=== PATIENT | female | born 1965 | race Caucasian/White ===

== ENCOUNTER 2020-07-02 12:27 | Emergency (ER) | payer MEDICAID, SELFPAY ==
[2020-07-02 12:33] VITALS: BP 122/68; PULSE 88; RESP 16; TEMP 36.5; O2SAT 96
--- NOTE | 2020-07-02 12:45 | DI.RAD_ITS ---
EXAM: XR FOOT RT COMPLETE CLINICAL HISTORY: pain, no truama. TECHNIQUE: 2D digital imaging was performed. COMPARISON: No exams were available for comparison FINDINGS: BONES: No acute fracture is present. No bony destructive lesion is seen.Heel spurs. Normal bone mine ralization. JOINTS: No dislocation present. Mild degenerative changes 1st MTP joint. Small ossicles adjacent to the navicular and cuboid. SOFT TISSUE: Normal. IMPRESSION: Mild degenerative changes and heel spurs. No acute abnormality. DATA REPOSITORY: RADIATION DOSE DELIVERED:
--- NOTE | 2020-07-02 12:47 | ED.GENADUL_ITS ---
Discharge Plan Disposition Patient Disposition: HOME Condition: Stable Discharge Details Clinical Impression: Bone spur of foot Primary Care Provider: Tarah Adams ED Provider: Gerardo Miner Home Meds and New Rx's Prescriptions: Continued amlodipine 2.5 mg tablet 2.5 mg PO DAILY Qty: 90 RF: 0 pravastatin 40 mg tablet 40 mg PO DAILY Qty: 90 RF: 0 bupropion HCl 150 mg tablet sustained-release 12 hr 150 mg PO BID Qty: 60 RF: 2 pantoprazole 40 mg tablet,delayed release (DR/EC) 40 mg PO DAILY Qty: 90 RF: 3 aspirin [Aspir-81] 81 MG tablet,delayed release (DR/EC) 81 mg PO DAILY Qty: 30 RF: 0 nitroglycerin [Nitrostat] 0.4 MG tablet, sublingual 0.4 mg Sublingual DIRECTED PRNQty: 25 RF: 0 Discharge Instructions Instructions: Heel Spur (ED) Referrals: Mihai Rose MD [ [facility] STAFF PHYSICIAN] - Medical Decision Making 55-year-old female presents with right plantar pain, atraumatic in nature, present for approximately 1 week. Point tenderness over the anterior calcaneus, most consistent with a bone spur. No evidence of warmth, erythema, cellulitis, gout, etc. The discomfort does not range into the arch of the foot that would be more consistent like a plantar fasciitis. Will obtain x-ray X-ray of right foot shows a bone spur of the calcaneus. Discussed findings with patient. Discussed treatment options. She has crutches at home. We discussed gentle stretching, rolling out a tennis ball, urut-wsm-[id number] anti-inflammatories, cool and/or warm compresses, advancing activity as tolerated. She was encouraged to reach out to orthopedics in the next 5-7 days if she is not receiving moderate relief with conservative therapy. Encouraged to return to the ER for new or evolving symptoms. Patient comfortable this plan and has no additional questions or concerns. Medical Records Medical records reviewed: Yes I reviewed the patient's medical records. HPI General Mode of arrival: ambulatory . Date/Time Provider Initiated Documentation: 07/02/20 12:38 . Limitations to Documentation: no limitations . Information obtained by: patient . HPI Narrative: 55-year-old female with history of hypertension, GERD, hyperlipidemia, current smoker, presents with right heel discomfort that has been present for the past week or so. Atraumatic in nature. Denies any fever, redness, swelling, numbness, tingling, weakness. Has tried [id number]-[id number] medications with minimal relief. Denies any other joint pain. Related Data Home Medications Medication Instructions Recorded Confirmed aspirin [Aspir-81] 81 mg PO DAILY #30 tablet. 01/04/13 07/02/20 nitroglycerin [Nitrostat] 0.4 mg SUBLINGUAL DIRECTED PRN 07/27/17 07/02/20 #25 tab.subl amlodipine 2.5 mg tablet 2.5 mg PO DAILY #90 tab 10/19/19 07/02/20 pravastatin 40 mg tablet 40 mg PO DAILY #90 tab-cap 10/19/19 07/02/20 bupropion HCl 150 mg tablet,12 hr 150 mg PO BID #60 tab 12/11/19 07/02/20 sustained-release pantoprazole 40 mg tablet,delayed 40 mg PO DAILY #90 tab-cap 05/13/20 07/02/20 release Previous Rx's Medication Instructions Recorded aspirin [Aspir-81] 81 mg PO DAILY #30 tablet. 01/04/13 nitroglycerin [Nitrostat] 0.4 mg SUBLINGUAL DIRECTED PRN 07/27/17 #25 tab.subl amlodipine 2.5 mg tablet 2.5 mg PO DAILY #90 tab 10/19/19 pravastatin 40 mg tablet 40 mg PO DAILY #90 tab-cap 10/19/19 bupropion HCl 150 mg tablet,12 hr 150 mg PO BID #60 tab 12/11/19 sustained-release pantoprazole 40 mg tablet,delayed 40 mg PO DAILY #90 tab-cap 05/13/20 release Allergies Allergy/AdvReac Type Severity Reaction Status Date / Time No Known Allergies Allergy Unverified 07/02/20 12:35 General Stated Complaint: Orthopedic JUNO: 4 Review of Systems Constitutional Constitutional: Denies fever(s) and Denies weakness Cardiovascular Cardiovascular: Denies chest pain and Denies dyspnea Respiratory Respiratory: Denies cough and Denies dyspnea Musculoskeletal Musculoskeletal: Denies arthralgias, Denies numbness and Denies tingling Integumentary/Breasts Skin/Breast: Denies rash Neurologic Neurologic: Denies numbness, Denies tingling and Denies weakness [facility] Medical History History of surgery S/P Lap assisted vaginal hysterectomy including oophorectomy. S/P section x two. S/P cardiac catheterization. Family History Mother Stroke Father , CAR ACCIDENT No problems noted. Sister , SHOT BY BOYFRIEND No problems noted. Sister Neoplasm Sister Neoplasm Social History Smoking/Tobacco Use Status: Current every day Smoking risk assessment performed?: Yes Alcohol Intake: current Alcohol Intake frequency: a few times a month Drug use: Current Sobriety Substance use type: does not use Do you feel safe at home: Yes Do you feel safe in your relationship?: Yes Exam Const General: cooperative, healthy appearing, comfortable and no acute distress Orientation: alert and awake HENWI Head: normal to inspection, normocephalic and atraumatic Eyes General: appearance normal, both eyes and all related structures Conjunctivae: conjunctivae normal Sclera: sclerae normal Neck Neck: normal visual inspection, trachea midline and supple Resp Effort & Inspection: normal respiratory effort and able to speak in complete sentences Cardio Rate: regular rate Rhythm: regular rhythm Skin General skin exam: no rashes or lesions noted Neuro General: patient alert, patient awake, moves all extremities and no focal motor deficits Cognition: normal cognition Speech: speech normal Gait: antalgic Motor: muscle tone normal throughout Sensory Exam: no sensory deficits noted Extrem General: normal to inspection, full ROM and capillary refill normal Right lower extremity: normal to inspection, full ROM, normal capillary refill and foot Details: normal capillary refill, tenderness (Point tenderness over anterior calcaneus, plantar aspect), toes with normal ROM, no edema and vascular exam Details: dorsalis pedis pulse present and normal capillary refill; no unusual warmth and no ecchymosis Left lower extremity: normal to inspection, full ROM and normal capillary refill Psych Appearance: grossly normal Mental Status: mental status grossly normal Course Vital Signs Vital signs: Vital Signs Temperature 36.5 C 07/02/20 12:33 Pulse 88 07/02/20 12:33 Respiratory Rate 16 07/02/20 12:33 Blood Pressure 122/68 07/02/20 12:33 Pulse Oximetry 96 07/02/20 12:33 Temperature 36.5 C 07/02/20 12:33 Temperature Source Skin 07/02/20 12:33 Pulse 88 07/02/20 12:33 Respiratory Rate 16 07/02/20 12:33 Respiratory Effort Non-Labored 07/02/20 12:35 Blood Pressure 122/68 07/02/20 12:33 Blood Pressure Position Sitting 07/02/20 12:33 Pulse Oximetry 96 07/02/20 12:33 Oxygen Delivery Method Room Air 07/02/20 12:33 Oxygen Flow Rate 0 07/02/20 12:33 Pain Level 9 07/02/20 12:35
--- NOTE | 2020-07-02 13:15 | DI.VRAD_ITS ---
PROCEDURE INFORMATION: Exam: XR Right Foot Complete Exam date and time: 07/02/2020 12:59 PM Age: 55 years old Clinical indication: Pain; Foot and heel; Right TECHNIQUE: Imaging protocol: XR Right foot. Views: 3 or more views. COMPARISON: No relevant prior studies available. FINDINGS: Bones/joints: See Soft tissues finding. Soft tissues: There is chronic spurring on the calcaneus at the insertions of the plantar aponeurosis and Achilles tendon. There is bunion on the 1st metatarsal bone with mild degenerative narrowing and sclerosis in the 1st metatarsophalangeal joint. No fracture, dislocation or other acute bone or joint abnormalities are seen. IMPRESSION: 1. Chronic spurring on the calcaneus. 2. 1st metatarsal bunion with mild DJD in the 1st metatarsophalangeal joint. Dictated and Authenticated by: Sly Alanis MD. Ordering:ZULEIMA Carrillo MD
== END 2020-07-02 13:27 | disposition home or self-care (01) ==
PROVIDERS: Emergency Provider Physician Assistant
DX: M77.31 Calcaneal spur, right foot (principal); I10 Essential (primary) hypertension
CPT/HCPCS: 99283; 73630

== ENCOUNTER 2020-11-14 04:12 | Outpatient (CLI) | payer MEDICAID, SELFPAY ==
[2020-11-15 16:15] LABS: COVID-19 RT-PCR UVMMC Result Negative (Negative)
== END 2020-11-14 04:13 | disposition home or self-care (01) ==
LOC: LBO 04:12
DX: Z20.822 Contact with and (suspected) exposure to COVID-19 (principal)
CPT/HCPCS: U0003

== ENCOUNTER 2021-04-17 09:20 | Emergency (ER) | payer MEDICAID, SELFPAY ==
[2021-04-17 09:25] VITALS: BP 129/78; PULSE 67; TEMP 36.3; O2SAT 98
--- NOTE | 2021-04-17 10:03 | DI.RAD_ITS ---
Exam(s) XR FINGER LT INDEX EXAM: XR FINGER LT INDEX CLINICAL HISTORY: infection, ? FB. TECHNIQUE: 2D digital imaging was performed. COMPARISON: None. FINDINGS: BONES: No acute fracture is present. No bony destructive lesion is seen. JOINTS: No dislocation present. Degenerative changes the distal interphalangeal joint. SOFT TISSUE: Swelling. No foreign body or abnormal gas collection. IMPRESSION: Soft tissue swelling. No evidence of fracture or foreign body.. DATA REPOSITORY: RADIATION DOSE DELIVERED:
--- NOTE | 2021-04-17 10:12 | DI.VRAD_ITS ---
PROCEDURE INFORMATION: Exam: XR Left Finger(s) Exam date and time: 04/17/2021 9:45 AM Age: 55 years old Clinical indication: Finger(s); Left; Patient HX: Cut finger 1 week ago -. Pain/swellimg - distal phalange index finger TECHNIQUE: Imaging protocol: XR Left fingers. Views: Minimum 2 views. COMPARISON: No relevant prior studies available. FINDINGS: Bones/joints: Diffuse soft tissue swelling of the index finger specially the volar aspect. Osteoarthritis of the DIP joint. No evidence of acute fracture. Soft tissues: See Bones/joints finding. IMPRESSION: No evidence of acute fracture. Soft tissue swelling. Dictated and Authenticated by: Carolyn Noel MD. Ordering:ZULEIMA Carrillo MD
[2021-04-17] MEDS: Bupivacaine 0.5% Pres-Free 30 ML VIAL (10:27)
--- NOTE | 2021-04-17 10:34 | ED.GENADUL_ITS ---
Discharge Plan Disposition Patient Disposition: HOME Condition: Stable Discharge Details Clinical Impression: Finger infection Primary Care Provider: Tarah Adams ED Provider: Gerardo Miner Home Meds and New Rx's Prescriptions: New sulfamethoxazole-trimethoprim [Bactrim DS] 800-160 mg tablet 1 tab PO BID Qty: 20 RF: 0 Continued pantoprazole 40 mg tablet,delayed release (DR/EC) 40 mg PO DAILY Qty: 90 RF: 3 aspirin [Aspir-81] 81 MG tablet,delayed release (DR/EC) 81 mg PO DAILY Qty: 30 RF: 0 Discharge Instructions Instructions: Abscess (ED), Cellulitis (ED) Additional Instructions: Bactrim as directed. Rest, elevate, warm soaks and/or compresses every 2 hours for 20 minutes. [id number]-azp-[id number] Tylenol and/or Motrin as directed for discomfort. Wear splint as needed, advance activity as tolerated. Please watch for new or worsening symptoms and return to the ER for any concerns. Otherwise I recommend contacting your primary care provider tomorrow to discuss your ER visit and potential need for outpatient reevaluation Medical Decision Making 55-year-old female, xprli-cmia-zzygpiia, presents status post laceration 1 week ago, now infected. Tetanus status not up-to-date. Will update tetanus, obtain x-ray to rule out foreign body, and perform an I&D Tetanus updated X-ray unremarkable I&D performed, finger was properly cleaned, dressed, splinted. First dose of p.o. Bactrim given. Standard discharge and return precautions given. This documentation was generated using TRUE [employer] dictation system, please disregard any oddities of phrase or misspellings. Medical Records Medical records reviewed: Yes I reviewed the patient's medical records. Imaging Data Radiologic Study: Attestation: I personally reviewed and interpreted this imaging study as follows: Imaging: X-Ray Radiologist's impression: PROCEDURE INFORMATION: Exam: XR Left Finger(s) Exam date and time: 04/17/2021 9:45 AM Age: 55 years old Clinical indication: Finger(s); Left; Patient HX: Cut finger 1 week ago -. Pain/swellimg - distal phalange index finger TECHNIQUE: Imaging protocol: XR Left fingers. Views: Minimum 2 views. COMPARISON: No relevant prior studies available. FINDINGS: Bones/joints: Diffuse soft tissue swelling of the index finger specially the volar aspect. Osteoarthritis of the DIP joint. No evidence of acute fracture. Soft tissues: See Bones/joints finding. IMPRESSION: No evidence of acute fracture. Soft tissue swelling. HPI General Mode of arrival: ambulatory . Date/Time Provider Initiated Documentation: 04/17/21 09:44 . Limitations to Documentation: no limitations . Information obtained by: patient . HPI Narrative: This is a 55-year-old female, past medical history of GERD, hypertension, [id number], presenting to the ER today for evaluation of the potential left index finger infection. Patient states that 1 week ago at work she cut her finger superficially on metal strapping, did not think much of it. Now the area is painful, red, swollen. Reports the pain is moderate, worse with movement or palpation. She denies any numbness, tingling, weakness, tetanus status is not up to date. Patient states that she has stuck a needle in it and tried squeezing without any drainage. Denies fever or rash elsewhere on her body. Related Data Home Medications Medication Instructions Recorded Confirmed aspirin [Aspir-81] 81 mg PO DAILY #30 tablet. 01/04/13 04/17/21 pantoprazole 40 mg tablet,delayed 40 mg PO DAILY #90 tab-cap 05/13/20 04/17/21 release sulfamethoxazole-trimethoprim 1 tab PO BID #20 tab 04/17/21 [Bactrim DS] Previous Rx's Medication Instructions Recorded aspirin [Aspir-81] 81 mg PO DAILY #30 tablet. 01/04/13 pantoprazole 40 mg tablet,delayed 40 mg PO DAILY #90 tab-cap 05/13/20 release sulfamethoxazole-trimethoprim 1 tab PO BID #20 tab 04/17/21 [Bactrim DS] Allergies Allergy/AdvReac Type Severity Reaction Status Date / Time No Known Allergies Allergy Verified 04/17/21 09:29 General Stated Complaint: Cellulitis JUNO: 5 Review of Systems Constitutional Constitutional: Denies fever(s) Musculoskeletal Musculoskeletal: Denies arthralgias, Denies numbness, Reports stiffness and Denies tingling Integumentary/Breasts Skin/Breast: Reports erythema Neurologic Neurologic: Denies numbness and Denies tingling [facility] Medical History History of surgery S/P Lap assisted vaginal hysterectomy including oophorectomy. S/P section x two. S/P cardiac catheterization. Plantar fasciitis, right Family History Mother Stroke Father , CAR ACCIDENT No problems noted. Sister , SHOT BY BOYFRIEND No problems noted. Sister Neoplasm Sister Neoplasm Social History Smoking/Tobacco Use Status: Current every day Tobacco Type: cigarettes Smoking risk assessment performed?: Yes Alcohol Intake: current Alcohol Intake frequency: a few times a month Drug use: Current Sobriety Substance use type: does not use Do you feel safe at home: Yes Do you feel safe in your relationship?: Yes Exam Const General: cooperative, healthy appearing, comfortable and no acute distress Orientation: alert and awake HENMT Head: normal to inspection, normocephalic and atraumatic Eyes Conjunctivae: conjunctivae normal Neck Neck: normal visual inspection, trachea midline and supple Resp Effort & Inspection: normal respiratory effort and able to speak in complete sentences Cardio Rate: regular rate Rhythm: regular rhythm Skin General skin exam: erythema Neuro General: patient alert, patient awake, moves all extremities and no focal motor deficits Cognition: normal cognition Speech: speech normal Sensory Exam: no sensory deficits noted Extrem General: capillary refill normal Other: Left index finger lateral aspect between the PIP and DIP joint there is mild swelling, erythema, warmth, tenderness to palpation. Minimal induration but no obvious fluctuance or pointing abscess. Full range of motion of the MCP and PIP joint. Full extension of the DIP joint, limited flexion of the DIP joint secondary to discomfort. Normal capillary refill and radial pulse. Neuro, vascular, tendon intact. Psych Appearance: grossly normal Mental Status: mental status grossly normal Course Vital Signs Vital signs: Vital Signs Temperature 36.3 C L 04/17/21 09:25 Pulse 67 04/17/21 09:25 Blood Pressure 129/78 04/17/21 09:25 Pulse Oximetry 98 04/17/21 09:25 Temperature 36.3 C L 04/17/21 09:25 Temperature Source Temporal Artery Scan 04/17/21 09:25 Pulse 67 04/17/21 09:25 Respiratory Effort Non-Labored 04/17/21 09:27 Blood Pressure 129/78 04/17/21 09:25 Blood Pressure Position Sitting 04/17/21 09:25 Pulse Oximetry 98 04/17/21 09:25 Oxygen Delivery Method Room Air 04/17/21 09:25 Oxygen Flow Rate 0 04/17/21 09:25 Pain Level 5 04/17/21 09:25 Procedures Abscess I/D Site: Hand Side (if applicable): Left Local Anesthetic: Lidocaine 1%, Bupivicaine 0.5% and Other Anesthetic (Mvbq-xuq-weag mixture) Amount of anesthesia used (mL): 4 Technique: Incised with #11 Blade Amount of fluid expressed (mL): 0.5 Irrigation: No Packing used?: None Complications: Other (No complications)
[2021-04-17] MEDS: Sulfameth/Trimeth DS TAB 1 TAB PO (10:36)
== END 2021-04-17 10:59 | disposition home or self-care (01) ==
PROVIDERS: Emergency Provider Physician Assistant
DX: S61.211A Laceration without foreign body of left index finger without damage to nail, initial encounter (principal); L08.89 Other specified local infections of the skin and subcutaneous tissue; W26.8XXA Contact with other sharp object(s), not elsewhere classified, initial encounter; Y99.0 Civilian activity done for income or pay
CPT/HCPCS: 10060; 90471; 99281; 73140

== ENCOUNTER 2022-03-01 01:08 | Outpatient (CLI) | payer MEDICAID, SELFPAY ==
--- OUTSIDE RECORDS SUMMARY | 2022-03-01 01:10 | XMS_ITS | Encounter Summary ---
:1965 Demographics Home Phone Preferred Language Unknown Marital Status Unknown Taoism Affiliation Unknown Race Unknown Ethnic Group Unknown Author Organization [facility] Address [address] [place] [address] Care Team Providers Name Role Phone Unavailable Primary Care Provider Unavailable Encounter Details Date Type Department Care Team Description 11/14/2020 Lab Requisition [facility] Outr Resulting Lab, Pathology & Laboratory Provider [facility] [address] [place] [address] Social History Tobacco Use Types Packs/Day Years Used Date Never Assessed Sex Assigned at Date Recorded Not on file documented as of this encounter Plan of Treatment Not on filedocumented as of this encounter Procedures Procedure Name Priority Date/Time Associated Diagnosis Comme nts COVID-19 TEST [facility] Today 11/14/2020 9:04 EDT LAB PCR COVID-19 TESTING Routine 11/14/2020 9:04 EDT Resu lts for this procedure are i n the results section. documented in this encounter Results COVID-19 TEST [facility] LAB PCR (11/14/2020 9:04 EDT) Specimen Swab - Entire nasopharynx (body structur e) Performing Organization Address City/State/ZIP Code Phon e Number [facility] [address] [place] [address] SERVICES COVID-19 TESTING (11/14/2020 9:04 EDT) COVID-19 rt-PCR Negative Negative [facility] Result Comment: C[facility] This test has not been FDA c leared or approved. This test has been authorized by FDA under an EUA for use by authorized laboratories. This test has been authorized only for detection of nucleic acid fro SERVICES m 2019-nCoV, not for any oth er viruses or pathogens. This test is only authorized for the duration of the declaration that circumstances exist justifying the authorization of emergency use of in vitro d iagnostic tests for detectio n and/or diagnosis of 2019-nCoV under section 564(b)(1) of Act, 21 U.S.C ?? 360bbb-3(b) (1), unless the authorization is terminated or revoked sooner. Negative results do not prec lude 2019-nCoV infection and should not be used as the sole basis for treatment or other patient management decisions. Negative results must be combined with clinical observa tions, patient history, and epidemiological informatio n. This test was developed and its performance characteristics determined by [facility]. It has not been cleared or approved by the US Food and Drug Administration. FDA does not require this test to go through premarket FDA review. This t est is used for clinical purposes. It should not be regarded as investigational or for research. This laboratory is certified under the Clinical Laboratory Improvement Amendm ents (CLIA) as qualified to perform high complexity clinical laboratory testing. This test is based on the CD C COVID-19 Emergency Use Authorization (EUA) assay, with minor modification as defined by the FDA Performed on the Tempo Paymentso 7 Flex RT-PCR System. Performing Lab [facility] Lab [facility] SERVICES Specimen Swab Performing Organization Address City/State/ZIP Code Phon e Number [facility] [address] [place] [address] SERVICES documented in this encounter Visit Diagnoses Not on filedocumented in this encounter
--- OUTSIDE RECORDS SUMMARY | 2022-03-01 01:10 | XMS_ITS | Clinical Summary ---
:1965 Author Organization [facility] Address [place] [id number] Care Team Providers Name Role Phone None Primary Care Provider Unavailable Allergies No known active allergies Medications Medication Sig Dispensed Refills Start Date End Date Status ranitidine (ZANTAC) 150 150 MG = 1 0 05/03/2009 Active mg tablet Tablet(s), PO, Once daily Social History Tobacco Use Types Packs/Day Years Used Date Never Assessed Sex Assigned at Date Recorded Not on file Plan of Treatment Health Maintenance Due Date Last Done Comments Covid-19 Vaccine (#1) 1971 HIV screen 1984 Hepatitis C Screening 1984 Tdap adult 1985 Tetanus vaccine 1985 HPV test 1996 PAP Smear 1996 Breast Cancer Share Decision Needed 2006 Colonoscopy 2011 Breast Cancer screening 2016 Zoster vaccine (1 of 2) 2016 Advance Directive 2021 Influenza (Flu) vaccine (1 of 1 - Influenza standard 04/12/2022 series) Care Teams Marketing Communications Associate Relationship Specialty Start Date End Date None PCP - General 07/04/10 None
--- OUTSIDE RECORDS SUMMARY | 2022-03-01 01:10 | XMS_ITS | Encounter Summary ---
:1965 Author Organization [facility] [place] [address] Care Team Providers Name Role Phone None Primary Care Provider Unavailable Encounter Details Date Type Department Care Team Description 07/27/2017 Telephone Cardiology Julieth Rodriguez MD [facility] [place] [address] CARDIOLOGY DEPT [phone] [place], [place] [address] (Wo rk) Social History Tobacco Use Types Packs/Day Years Used Date Never Assessed Sex Assigned at Date Recorded Not on file documented as of this encounter Miscellaneous Notes Telephone Encounter - Julieth Rodriguez MD - 07/27/2017 2:30 AM EST Received phone call from Dr. Vital at [facility] Brief summary of call: Ms. Santos is a 52 yr old woman with a history of CAD and NSTEMI in the past. Reportedly her last caths were in 2008 and 2004 (it is unclear if she was stented; medical management noted). She presentedto the ED with an episode of abrupt onset SSCP with radiation to her left arm and diaphoresis after an argument with her son. She took 1 NTG at home with some relief but pain continued and she presented to ED. In the ED her vitals were 112/60 HR: 70-80's, satting well RA. She was given a second NTG which briefly dropped her BP to 90's after which she received small amount of fluid bolus with good result. Her EKG was sinus rhythm with anterior TWI that reportedly were the same from 2013. In addition she had poor R wave progression. Her initial troponin was negative but given her past history and theappearance of SSCP essentially at rest, Dr. Vital will treat as UA with full dose ASA, heparin, Plavix and BB. He will monitor her there overnight and will seek additional consultation and/or transfer to another hospital as [facility] [place] unlikely [place] beds for at least 48hrs. documented in this encounter Plan of Treatment Not on filedocumented as of this encounter Visit Diagnoses Not on filedocumented in this encounter Care Teams Amortization Schedule Clerk Relationship Specialty Start Date End Date None PCP - General 07/04/10 None documented as of this encounter
--- OUTSIDE RECORDS SUMMARY | 2022-03-01 01:10 | XMS_ITS | Encounter Summary ---
:1965 [place] [address] Care Team Providers Name Role Phone None Primary Care Provider Unavailable Reason for Visit Reason Onset Date Comments Chest Pain 07/25/2012 Encounter Details Date Type Department Care Team Description 07/25/2012 Telephone Cardiology at [facility] Patricia Mims MD Chest Pain [facility] [address] CARDIOLOGY DEPT [phone] [place], [place] [address] (Wo rk) Social History Tobacco Use Types Packs/Day Years Used Date Never Assessed Sex Assigned at Date Recorded Not on file documented as of this encounter Miscellaneous Notes Telephone Encounter - Patricia Mims MD - 07/25/2012 2:21 AM EST Transfer call from Dr. Carlson, [facility] ([facility]) 47 yo F presents with several hours of substernal CP that began at rest with radiation to her arm. She had a cath here in '09 with normal coronaries. Trop and EKG negative so far. Pt still with chest pain that went from 5/10 to 1-2 /10 after receiving ASA, Plavix, heparin gtt and initiation of nitro gtt. Still with some mild chest pain. BP a little low but normalized with fluids. Currently, no bed available, but will plan to transfer for w/u of CP/UA as soon as bed is available. documented in this encounter Plan of Treatment Not on filedocumented as of this encounter Visit Diagnoses Not on filedocumented in this encounter Care Teams Cell Inspector Relationship Specialty Start Date End Date None PCP - General 07/04/10 None documented as of this encounter
--- OUTSIDE RECORDS SUMMARY | 2022-03-01 01:10 | XMS_ITS | Clinical Summary ---
:1965 Demographics Home Phone Preferred Language Unknown Marital Status Unknown Episcopalian Affiliation Unknown Race Unknown Ethnic Group Unknown Author Organization [facility] Address [address] [address] Care Team Providers Name Role Phone Unavailable Primary Care Provider Unavailable Social History Tobacco Use Types Packs/Day Years Used Date Never Assessed Sex Assigned at Date Recorded Not on file Plan of Treatment Not on file
--- OUTSIDE RECORDS SUMMARY | 2022-03-01 01:10 | XMS_ITS | Encounter Summary ---
:1965 Author Organization [facility] [place] [address] Care Team Providers Name Role Phone None Primary Care Provider Unavailable Reason for Visit Reason Onset Date Comments Other 07/25/2012 transfer request Encounter Details Date Type Department Care Team Description 07/25/2012 Telephone [facility] 4 Flex Unit Linette Castillo, RN Other (transfer request) [place] [address] Social History Tobacco Use Types Packs/Day Years Used Date Never Assessed Sex Assigned at Date Recorded Not on file documented as of this encounter Miscellaneous Notes Telephone Encounter - Linette Castillo, RN - 07/25/2012 10:12 AM EST 47 YEAR OLD WITH HX OF [place] IN 2004, CATH 2005 @[facility], DISTAL LAD , UNABLE TO ANGIOPLASTY. CATH DONE AT [facility] 2008. SHOWS NORMAL LAD. PATIENT PRESENTS WITH 9/10 CHEST PRESSURE RADIATING TO LEFT ARM. TOOK NTG AT HOME WITH NO RELIEF. TROPONIN IS NEG. EKG WITH NO CHANGES. PATIENT STARTED ON NTG GTT, HEPARIN GTT. PATIENT GIVEN ASA, PLAVIX. PAIN IS NOW 1/10. CHEST XRAY IS NEG. NO BEDS AVAILABLE AT TIME OF CALL. WILL TRANSFER TO [facility] WHEN BED BECOMES AVAILABLE. documented in this encounter Plan of Treatment Not on filedocumented as of this encounter Visit Diagnoses Not on filedocumented in this encounter Care Teams Extrusion Technician Relationship Specialty Start Date End Date None PCP - General 07/04/10 None documented as of this encounter
== END 2022-03-01 01:09 | disposition home or self-care (01) ==
LOC: LOS 01:09
PROVIDERS: PCP Nurse Practitioner; Visit Provider Nurse Practitioner

== ENCOUNTER 2022-03-02 02:36 | Outpatient (CLI) | payer MEDICAID, SELFPAY ==
--- OUTSIDE RECORDS SUMMARY | 2022-03-02 02:38 | XMS_ITS | Clinical Summary ---
:1965 Demographics Home Phone Preferred Language Unknown Marital Status Unknown Scientologist Affiliation Unknown Race Unknown Ethnic Group Unknown Author Organization [facility] Address [address] [place] [address] Care Team Providers Name Role Phone Unavailable Primary Care Provider Unavailable Social History Tobacco Use Types Packs/Day Years Used Date Never Assessed Sex Assigned at Date Recorded Not on file Plan of Treatment Not on file
--- OUTSIDE RECORDS SUMMARY | 2022-03-02 02:38 | XMS_ITS | Encounter Summary ---
:1965 Demographics Home Phone Preferred Language Unknown Marital Status Unknown Jew Affiliation Unknown Race Unknown Ethnic Group Unknown Author Organization [facility] Address [address] [place] [address] Care Team Providers Name Role Phone Unavailable Primary Care Provider Unavailable Encounter Details Date Type Department Care Team Description 11/14/2020 Lab Requisition [facility] Outr Resulting Lab, Pathology & Laboratory Provider [facility] [address] [place] [address] Social History Tobacco Use Types Packs/Day Years Used Date Never Assessed Sex Assigned at Date Recorded Not on file documented as of this encounter Plan of Treatment Not on filedocumented as of this encounter Procedures Procedure Name Priority Date/Time Associated Diagnosis Comme nts [facility] [facility] 11/14/2020 9:04 EDT LAB PCR COVID-19 TESTING Routine 11/14/2020 9:04 EDT Resu lts for this procedure are i n the results section. documented in this encounter Results COVID-19 TEST [facility] LAB PCR (11/14/2020 9:04 EDT) Specimen Swab - Entire nasopharynx (body structur e) Performing Organization Address City/State/ZIP Code Phon e Number [facility] [address] [place] [address] SERVICES COVID-19 TESTING (11/14/2020 9:04 EDT) COVID-19 rt-PCR Negative Negative [facility] Result Comment: CENTER [facility] This [...] developed and its performance characteristics determined by [facility]. It has not been cleared or approved [...] defined by the FDA Performed on the Mitek Systemso 7 Flex RT-PCR System. Performing Lab ASIF [facility] Lab [facility] SERVICES Specimen Swab Performing Organization Address City/State/ZIP Code Phon e Number [facility] [address] [place] [address] SERVICES documented in this encounter Visit Diagnoses Not on filedocumented in this encounter
--- OUTSIDE RECORDS SUMMARY | 2022-03-02 02:38 | XMS_ITS | Encounter Summary ---
:1965 [place] [address] Care Team Providers Name Role Phone None Primary Care Provider Unavailable Reason for Visit Reason Onset Date Comments Chest Pain 07/25/2012 Encounter Details Date Type Department Care Team Description 07/25/2012 Telephone Cardiology at [facility] Patricia Mims MD Chest Pain [facility] [place] [address] CARDIOLOGY DEPT [phone] [place], [place] [address] (Wo rk) Social History Tobacco Use Types Packs/Day Years Used Date Never Assessed Sex Assigned at Date Recorded Not on file documented as of this encounter Miscellaneous Notes Telephone Encounter - Patricia Mims MD - 07/25/2012 2:21 AM EST Transfer call from Dr. Carlson, [facility] ([facility]) 47 yo F presents with several [...] on filedocumented in this encounter Care Teams End Trimmer Relationship Specialty Start Date End Date None PCP - General 07/04/10 None documented as of this encounter
--- OUTSIDE RECORDS SUMMARY | 2022-03-02 02:38 | XMS_ITS | Encounter Summary ---
:1965 Author Organization [facility] [place] [address] Care Team Providers Name Role Phone None Primary Care Provider Unavailable Encounter Details Date Type Department Care Team Description 07/27/2017 Telephone Cardiology Julieth Rodriguez MD [facility] [place] [address] CARDIOLOGY DEPT [phone] [place], [place] [address] (Wo rk) Social History Tobacco Use Types Packs/Day Years Used Date Never Assessed Sex Assigned at Date Recorded Not on file documented as of this encounter Miscellaneous Notes Telephone Encounter - Julieth Rodriguez MD - 07/27/2017 2:30 AM EST Received phone call from Dr. Vital at [facility] Brief summary of call: Ms. Santos is [...] consultation and/or transfer to another hospital as [facility] unlikely to have beds for at least 48hrs. documented in this encounter Plan of Treatment Not on filedocumented as of this encounter Visit Diagnoses Not on filedocumented in this encounter Care Teams Dean Of Women Relationship Specialty Start Date End Date None PCP - General 07/04/10 None documented as of this encounter
--- OUTSIDE RECORDS SUMMARY | 2022-03-02 02:38 | XMS_ITS | Encounter Summary ---
:1965 [place] [address] Care Team Providers Name Role Phone None Primary Care Provider Unavailable Encounter Details Date Type Department Care Team Description 07/27/2017 External Results TeleHealth Julieth Rodriguez MD [facility] [place] [address] CARDIOLOGY DEPT [phone] [place], [place] [address] (Wo rk) Social History Tobacco Use Types Packs/Day Years Used Date Never Assessed Sex Assigned at Date Recorded Not on file documented as of this encounter Plan of Treatment Not on filedocumented as of this encounter Procedures Procedure Name Priority Date/Time Associated Diagnosis Comme nts ECG SCAN Routine 07/27/2017 documented in this encounter Results Scan Doc: ECG (07/27/2017) Narrative This result has an attachment that is no t available. Julieth Rodriguez MD MEDIA MGR SCAN EXT ORDR/RSLT documented in this encounter Visit Diagnoses Not on filedocumented in this encounter Care Teams Clinical Social Work Aide Relationship Specialty Start Date End Date None PCP - General 07/04/10 None documented as of this encounter
[2022-03-02 13:03] LABS: Calculated LDL 113 mg/dL (<100); Cholesterol 201 mg/dL (<200); HDL Cholesterol 74 mg/dL (40-60); Triglyceride 74 mg/dL (<150)
== END 2022-03-02 02:37 | disposition home or self-care (01) ==
LOC: LOS 02:36
PROVIDERS: PCP Nurse Practitioner; Visit Provider Nurse Practitioner
DX: E78.5 Hyperlipidemia, unspecified (principal); Z13.1 Encounter for screening for diabetes mellitus
CPT/HCPCS: 36415; 80061; 83036

== ENCOUNTER → 2022-03-09 00:45 | Outpatient (CLI) | payer MEDICAID, SELFPAY ==
--- OUTSIDE RECORDS SUMMARY | 2022-03-09 00:46 | XMS_ITS | Encounter Summary ---
:1965 Demographics Home Phone Preferred Language Unknown Marital Status Unknown Episcopal Affiliation Unknown Race Unknown Ethnic Group Unknown Author Organization [facility] Address [address] [place] [address] Care Team Providers Name Role Phone Unavailable Primary Care Provider Unavailable Encounter Details Date Type Department Care Team Description 11/14/2020 Lab Requisition [facility] Outr Resulting Lab, Pathology & Laboratory Provider [facility] [address] [place] [address] Social History Tobacco Use Types Packs/Day Years Used Date Never Assessed Sex Assigned at Date Recorded Not on file documented as of this encounter Plan of Treatment Not on filedocumented as of this encounter Procedures Procedure Name Priority Date/Time Associated Diagnosis Comme nts [facility] Today 11/14/2020 9:04 EDT LAB PCR COVID-19 TESTING Routine 11/14/2020 9:04 EDT Resu lts for this procedure are i n the results section. documented in this encounter Results COVID-19 TEST [facility] LAB PCR (11/14/2020 9:04 EDT) Specimen Swab - Entire nasopharynx (body structur e) Performing Organization Address City/State/ZIP Code Phon e Number [facility] [address] [place] [address] SERVICES COVID-19 TESTING (11/14/2020 9:04 EDT) COVID-19 rt-PCR Negative Negative [facility] MEDICAL Result Comment: CENTER [facility]ORY This [...] developed and its performance characteristics determined by [facility]. It has not been cleared or approved [...] defined by the FDA Performed on the Jack [employer] Blocko 7 Flex RT-PCR System. Performing Lab ASIF [facility] Lab [facility] SERVICES Specimen Swab Performing Organization Address City/State/ZIP Code Phon e Number [facility] [address] [place] [address] SERVICES documented in this encounter Visit Diagnoses Not on filedocumented in this encounter
--- OUTSIDE RECORDS SUMMARY | 2022-03-09 00:46 | XMS_ITS | Encounter Summary ---
:1965 Author Organization [facility] [place] [address] Care Team Providers Name Role Phone None Primary Care Provider Unavailable Reason for Visit Reason Onset Date Comments Other 07/25/2012 transfer request Encounter Details Date Type Department Care Team Description 07/25/2012 Telephone [facility] 4 Flex Unit Linette Castillo, RN Other (transfer request) [place] [address] Social History Tobacco Use Types Packs/Day Years Used Date Never Assessed Sex Assigned at Date Recorded Not on file documented as of this encounter Miscellaneous Notes Telephone Encounter - Linette Castillo, RN - 07/25/2012 10:12 AM EST 47 YEAR OLD WITH HX OF [place] IN 2004, CATH 2005 @[facility], DISTAL LAD , UNABLE TO ANGIOPLASTY. CATH DONE AT [facility] 2008. SHOWS NORMAL LAD. PATIENT PRESENTS WITH 9/10 CHEST PRESSURE RADIATING TO LEFT ARM. TOOK NTG AT HOME WITH NO RELIEF. TROPONIN IS NEG. EKG WITH NO CHANGES. PATIENT STARTED ON NTG GTT, HEPARIN GTT. PATIENT GIVEN ASA, PLAVIX. PAIN IS NOW 1/10. CHEST XRAY IS NEG. NO BEDS AVAILABLE AT TIME OF CALL. WILL TRANSFER TO [facility] WHEN BED BECOMES AVAILABLE. documented in this encounter Plan of Treatment Not on filedocumented as of this encounter Visit Diagnoses Not on filedocumented in this encounter Care Teams Medical Billing Clerk Relationship Specialty Start Date End Date None PCP - General 07/04/10 None documented as of this encounter
--- OUTSIDE RECORDS SUMMARY | 2022-03-09 00:46 | XMS_ITS | Encounter Summary ---
:1965 Author Organization [facility] [place] [address] Care Team Providers Name Role Phone None Primary Care Provider Unavailable Encounter Details Date Type Department Care Team Description 07/27/2017 Telephone Cardiology Julieth Rodriguez MD [facility] [place] [address] CARDIOLOGY DEPT [phone] [place], [place] [address] (Wo rk) Social History Tobacco Use Types Packs/Day Years Used Date Never Assessed Sex Assigned at Date Recorded Not on file documented as of this encounter Miscellaneous Notes Telephone Encounter - Julieth Rodriguez MD - 07/27/2017 2:30 AM EST Received phone call from Dr. Vital at [facility] Brief summary of call: Ms. Santos is [...] consultation and/or transfer to another hospital as [facility] is unlikely to have beds for at least 48hrs. documented in this encounter Plan of Treatment Not on filedocumented as of this encounter Visit Diagnoses Not on filedocumented in this encounter Care Teams Wave Guide Assembler Relationship Specialty Start Date End Date None PCP - General 07/04/10 None documented as of this encounter
--- OUTSIDE RECORDS SUMMARY | 2022-03-09 00:46 | XMS_ITS | Clinical Summary ---
:1965 Author Organization [facility] Address [place] [id number] Care Team Providers Name Role Phone None [...] - Influenza standard 04/12/2022 series) Care Teams Manager Radio Relationship Specialty Start Date End Date None PCP - General 07/04/10 None
--- OUTSIDE RECORDS SUMMARY | 2022-03-09 00:46 | XMS_ITS | Encounter Summary ---
:1965 [place] [address] Care Team Providers Name Role Phone None Primary Care Provider Unavailable Reason for Visit Reason Onset Date Comments Chest Pain 07/25/2012 Encounter Details Date Type Department Care Team Description 07/25/2012 Telephone Cardiology at [facility] Patricia Mims MD Chest Pain [facility] [place] [address] CARDIOLOGY DEPT [phone] [place], [place] [address] (Wo rk) Social History Tobacco Use Types Packs/Day Years Used Date Never Assessed Sex Assigned at Date Recorded Not on file documented as of this encounter Miscellaneous Notes Telephone Encounter - Patricia Mims MD - 07/25/2012 2:21 AM EST Transfer call from Dr. Carlson, [facility]) 47 yo F presents with several [...] on filedocumented in this encounter Care Teams Wood Model Builder Relationship Specialty Start Date End Date None PCP - General 07/04/10 None documented as of this encounter
--- OUTSIDE RECORDS SUMMARY | 2022-03-09 00:46 | XMS_ITS | Clinical Summary ---
:1965 Demographics Home Phone Preferred Language Unknown Marital Status Unknown Druze Affiliation Unknown Race Unknown Ethnic Group Unknown Author Organization [facility] Address [address] [place] [address] Care Team Providers Name Role Phone Unavailable Primary Care Provider Unavailable Social History Tobacco Use Types Packs/Day Years Used Date Never Assessed Sex Assigned at Date Recorded Not on file Plan of Treatment Not on file
--- NOTE | 2022-03-09 08:00 | DI.CT_ITS ---
Exam(s) CT CHEST WO EXAM: CT CHEST WO CLINICAL HISTORY: f/u XR nodule, LUNG NODULE SEEN ON IMAGING STUDY, R91.1 TECHNIQUE: Imaging Protocol: Axial computed tomography images with coronal and sagittal reformatted images were created and reviewed CONTRAST MATERIAL: Noncontrast COMPARISON: CR XR CHEST PORTABLE [id number] from 02/26/2022 FINDINGS: Tracheobronchial tree: No bronchiectasis or mucous plugging. Mediastinum and Kerri: No dominant adenopathy or fluid collection. Pulmonary parenchyma: No consolidation or dominant measurable mass. No emphysematous or fibrotic bacon ges. Pleura: No effusion or pneumothorax. Heart: The heart is not dilated. No coronary artery calcifications are seen. Aorta: Thoracic aorta non-dilated. Minimal calcification. Upper abdomen: Unremarkable. Lymph nodes: Within normal limits. Bones: Degenerative disc changes with prominent disc osteophytes in the mid thoracic spine. Tubes, Catheters, and Lines: None Soft tissues: Unremarkable. IMPRESSION: Normal CT of the thorax. Questioned findings of right upper lobe mass on portable chest are consistent with overlying structur es. RADIATION DOSE DELIVERED: 508.31mGy.cm Total DLP DATA REPOSITORY: All CT scans at this facility are submitted to the National Radiology Data Registry (NRDR) Dose Index Registry (DIR) with the [employer] (ACR). RADIATION OPTIMIZATION: All CT scans at this facility use at least one of these dose optimization te chniques: automated exposure control; mA and/or kV adjustment per patient size (includes targeted exa ms where dose is matched to clinical indication); or iterative reconstruction.
== END ==
PROVIDERS: PCP Nurse Practitioner; Visit Provider Nurse Practitioner
DX: R91.1 Solitary pulmonary nodule (principal)
CPT/HCPCS: 71250

== ENCOUNTER 2022-09-24 06:25 | Emergency (ER) | payer MEDICAID, SELFPAY ==
[2022-09-24 06:30] VITALS: BP 152/79; PULSE 81; RESP 20; TEMP 37.1; O2SAT 96
--- NOTE | 2022-09-24 06:30 | RT.EKG_ITS ---
APPROVED REPORT Exam: Resting ECG Reason for Exam: trouble breathing Patient Location: E HR:80 bpm ECG Measurements Heart Rate 80 AXIS GA 141 P 68 QRSd 89 QRS 55 QT 381 T 50 QTc 439 Conclusion Sinus rhythm...normal P axis, V-rate 60- 99 Low voltage, extremity leads...all extremity leads <0.5mV Nonspecific T abnormalities, anterior leads...T <-0.10mV, V2-V4
--- NOTE | 2022-09-24 06:30 | DI.RAD_ITS ---
Exam(s) XR PORTABLE CHEST AP EXAM: XR PORTABLE CHEST AP CLINICAL HISTORY: cough TECHNIQUE: 2D digital imaging was performed. COMPARISON: CT CT CHEST WO from 03/09/2022 FINDINGS: LUNGS: Clear. No pleural abnormality seen. HEART: Normal size. AORTA: Normal diameter. BONES: Unremarkable for age. Soft tissues: Unremarkable. IMPRESSION: No acute findings. DATA REPOSITORY: RADIATION DOSE DELIVERED:
--- NOTE | 2022-09-24 06:48 | ED.GENADUL_ITS ---
Discharge Plan Disposition Patient Disposition: Home Condition: Good Discharge Details Clinical Impression: Asthma exacerbation Primary Care Provider: Ronn Ross ED Provider: Jorge Alberto Broderick Home Meds and New Rx's Prescriptions: Continued pantoprazole 40 mg tablet,delayed release (DR/EC) See Rx Instructions .ROUTE .COMPLEX Qty: 90 3RF Dose Instruction: TAKE ONE TABLET BY MOUTH EVERY DAY Rx Instructions: TAKE ONE TABLET BY MOUTH EVERY DAY aspirin [Aspir-81] 81 MG tablet,delayed release (DR/EC) 81 mg PO DAILY Qty: 30 0RF Patient Comments: pt stopped med Discharge Instructions Instructions: Asthma (ED) Additional Instructions: At this time your work-up shows no evidence of cardiac abnormality, heart attack, blood clot or pneumonia. Your symptoms appear consistent with asthma. Please use the albuterol inhaler, 2 puffs every 6 hours until your symptoms have resolved. If you notice any worsening of your symptoms, or any new symptoms such as vomiting, diarrhea, fever, chills, shortness of breath, chest pain, numbness, weakness, or fainting , please return immediately to the emergency department for reevaluation. Please follow up with your primary care provider as soon as possible for reassessment and reevaluation. As always, it was a pleasure participating in your medical care today. Referrals: Ronn Ross, [employer] [Primary Care Provider] - Medical Decision Making <Walter Uriarte MD - Last Filed: 09/24/22 06:52> 57 yo female with hx of smoking and quit last April, , who comes in with onset of shortness of breath and chest tightness starting at 0500 this morning. She states last night and during the day she felt well without any symptoms. She also notes a dry cough. No abdominal pain, no n/v, no diaphoresis. She states the tightness is in the anterior chest and nonradiating. She arrives stable speaking in full sentences. She has apical wheezing bilaterally, no murmurs, soft nontender abdomen, no calf tenderness. Caox4 without deficits on exam. Unclear etiology for her symptoms, will obtain troponin, ecg with t wave inversions in anterior leads which per chart review have been present in the past, d dimer, cbc, cmp, cxr and given the apical wheezing treat with duoneb and solumedrol Differential Diagnosis Differential Diagnosis: uri, nstemi, chf, pe Medical Records Medical records reviewed: Yes I reviewed the patient's medical records. ECG Data Attestation: I personally reviewed and interpreted this ECG (s) as follows: Prior ECG tracings: not available for review Interpretation: sinus rhythm, rate of 80, pr 141, no stemi <Jorge Albertorao Broderick, - Last Filed: 09/24/22 10:11> 57 yo female with hx of smoking and quit last April, , who comes in with onset of shortness of breath and chest tightness starting at 0500 this morning. She states last night and during the day she felt well without any symptoms. She also notes a dry cough. No abdominal pain, no n/v, no diaphoresis. She states the tightness is in the anterior chest and nonradiating. She arrives stable speaking in full sentences. She has apical wheezing bilaterally, no murmurs, soft nontender abdomen, no calf tenderness. Caox4 without deficits on exam. Unclear etiology for her symptoms, will obtain troponin, ecg with t wave inversions in anterior leads which per chart review have been present in the past, d dimer, cbc, cmp, cxr and given the apical wheezing treat with duoneb and solumedrol Dr. Broderick's documentation: Patient was signed out to me by my colleague Dr. Walter Uriarte. Please refer to his HPI, physical exam, assessment and plan. Laboratory work-up is returned, notably unremarkable, D-dimer was elevated, CTA was ordered and was negative for acute process. Laboratory work-up is otherwise stable, EKG stable, troponin is stable. Repeat troponin stable, repeat EKG stable. On reassessment the patient is feeling much better. No hypoxemia or respiratory distress whatsoever. Wheezes have completely resolved. She feels much better and feels comfortable going home. Diagnosis mild asthma exacerbation. Patient will be given albuterol inhaler for home use, Decadron for home use. Discussed red flags which to return. Patient stable for discharge. Symptoms inconsistent with ACS, PE or dissection. I have extensively reviewed the treatment plan and discharge instructions with the patient and their family. I have addressed all patient concerns at this time. The patient and family was made aware of what symptoms to monitor for that would warrant a return to the emergency department. Discussed the plan with the patient and family, they demonstrate verbal understanding and agreement with our assessment and plan at this time. The documentation in this chart was dictated using [employer] dictation software. Please excuse any dictation errors. FINDINGS: Pulmonary Arteries: No evidence of filling defect to suggest pulmonary emboli. Tracheobronchial tree: Patent where visualized. Mediastinum and Kerri: No dominant adenopathy or fluid collection. Pulmonary parenchyma: No consolidation or dominant measurable mass. Pleura: No effusion or pneumothorax. Heart: The heart is not dilated. No coronary artery calcifications are seen. Aorta: Thoracic aorta non-dilated. No aneurysm. No dissection. Upper abdomen: Severe fatty infiltration of the liver. Bones: Unremarkable for age. Tubes, Catheters, and Lines: IMPRESSION: No evidence of pulmonary embolism or other acute abnormality.. HPI <Walter Uriarte MD - Last Filed: 09/24/22 06:52> General Mode of arrival: ambulatory . Date/Time Provider Initiated Documentation: 09/24/22 06:37 . Limitations to Documentation: no limitations . Information obtained by: patient . History of Present Illness 57 year old F presents to the emergency department with the chief complaint of shortness of breath, described as moderate, Patient reports no radiation. Patient started experiencing this hour(s) (3) and it has been constant. No relieving factors improve symptom(s), No exacerbating factors reported . Patient notes no other symptoms.. Patient did receive the following treatments prior to arrival, none Related Data Home Medications Medication Instructions Recorded Confirmed aspirin 81 mg tablet,delayed 81 mg PO DAILY ##30 01/04/13 09/24/22 release (Aspir-) pantoprazole 40 mg tablet,delayed See Rx Instructions .Route 08/08/22 09/24/22 release .COMPLEX #90 tabs Previous Rx's Medication Instructions Recorded aspirin 81 mg tablet,delayed 81 mg PO DAILY ##30 01/04/13 release (Aspir-) pantoprazole 40 mg tablet,delayed See Rx Instructions .Route 08/08/22 release .COMPLEX #90 tabs Allergies Allergy/AdvReac Type Severity Reaction Status Date / Time No Known Allergies Allergy Verified 02/27/22 15:35 General Stated Complaint: SOB JUNO: 3 Review of Systems <Walter Uriarte MD - Last Filed: 09/24/22 06:52> All systems reviewed & are unremarkable except as noted in HPI and below Constitutional Constitutional: Denies chills, Denies fever(s) and Denies weakness Cardiovascular Cardiovascular: Reports chest pain Gastrointestinal Gastrointestinal: Denies abdominal pain and Denies vomiting Musculoskeletal Musculoskeletal: Denies joint swelling Integumentary/Breasts Skin/Breast: Denies rash Neurologic Neurologic: Denies weakness PFS <Walter Uriarte MD - Last Filed: 09/24/22 06:52> All Active Problems (Updated 09/24/22 @ 09:32 by Jorge Alberto Broderick DO) Asthma exacerbation (Acute) Lung nodule seen on imaging study (Acute) 03/02- [facility] ER- [facility], CT recommended/ ordered Essential hypertension (Acute 07/11/15) Gastroesophageal reflux disease without esophagitis (Acute 07/11/15) Tobacco use disorder (Acute) Coronary arteriosclerosis (Chronic) 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 Clean coronaries 2008. Negative MPI July 2012. Hyperlipidemia (Chronic) Relative hyperlipidemia, we set LDL target of 70. Last LDL 100 off therapy. Medical History (Updated 09/24/22 @ 09:32 by Jorge Alberto Broderick DO) History of surgery S/P Lap assisted vaginal hysterectomy including oophorectomy. S/P section x two. S/P cardiac catheterization. Menopausal symptom Following oophorectomy. Plantar fasciitis, right Family History Mother Stroke Father , CAR ACCIDENT No problems noted. Sister , SHOT BY BOYFRIEND No problems noted. Sister Neoplasm Sister Neoplasm Social History Smoking/Tobacco Use Status: Former Tobacco Use Quit Date: 04/12/22 Smoking risk assessment performed?: Yes Alcohol Intake: current Alcohol Intake frequency: a few times a month Drug use: Current Sobriety Substance use type: does not use Do you feel safe at home: Yes Do you feel safe in your relationship?: Yes Exam <Walter Uriarte MD - Last Filed: 09/24/22 06:52> Const General: no acute distress Orientation: alert HENNE Head: normal to inspection Ears: external ears normal General nose exam: external nose normal Mouth: moist mucous membranes Eyes General: appearance normal, both eyes and all related structures Neck Neck: normal visual inspection Resp Effort & Inspection: normal respiratory effort and able to speak in complete sentences Auscultation: wheezes Cardio Rate: regular rate Heart Sounds: no murmurs Skin General skin exam: no rashes or lesions noted Neuro General: patient alert and patient oriented x3 Extrem General: normal to inspection Psych Mental Status: mental status grossly normal Course <Walter Uriarte MD - Last Filed: 09/24/22 06:52> Vital Signs Vital signs: Vital Signs Temperature 37.1 C 09/24/22 06:30 Pulse 81 09/24/22 06:30 Respiratory Rate 20 09/24/22 06:30 Blood Pressure 152/79 H 09/24/22 06:30 Pulse Oximetry 96 09/24/22 06:30 Temperature 37.1 C 09/24/22 06:30 Temperature Source Oral 09/24/22 06:30 Pulse 81 09/24/22 06:30 Respiratory Rate 20 09/24/22 06:30 Respiratory Effort Short of Breath 09/24/22 06:35 Blood Pressure 152/79 H 09/24/22 06:30 Blood Pressure Position Sitting 09/24/22 06:30 Pulse Oximetry 96 09/24/22 06:30 Oxygen Delivery Method Room Air 09/24/22 06:30 Oxygen Flow Rate 0 09/24/22 06:30 Sign Out <Walter Uriarte MD - Last Filed: 09/24/22 06:52> Sign Out Data: Sign Out Comment: chest tightness and shortness of breath starting this morning, mild apical wheezing, pending labs, portable chest and response to duoneb/solumedrol Last updated by Walter Uriarte MD at 09/24/22 07:15
[2022-09-24] MEDS: methylPREDNISolone SUCC 125 MG VIAL IVP (07:03)
[2022-09-24] MEDS: Albuterol/Ipratropium 3 ML UPD VIAL UPD (07:03)
[2022-09-24 07:14] LABS: Abs Immature Grans 0.03 10^3/uL (0.0-0.06); Absolute Basophil Count 0.05 10^3/uL (0.0-0.2); Absolute Eosinophil Count 0.13 10^3/uL (0.0-0.7); Absolute Lymphocyte Count 2.11 10^3/uL (1.2-3.4); Absolute Monocyte Count 0.77 10^3/uL (0.1-0.8); Absolute Neutrophil Count 5.58 10^3/uL (1.2-6.7); Basophils % 0.6; Eosinophils % 1.5; HGB 13.8 g/dL (11.2-15.7); Immature Grans % 0.3; Lymphocytes % 24.3; MCH 33.2 pg (27.0-33.0); MCHC 33.7 % (32.0-36.0); MCV 99 fL (80-95); MPV 11.2 fL (8.0-11.0); Monocytes % 8.9; Neutrophils % 64.4; Platelet Count 229 10^3/uL (130-400); RBC 4.16 10^6/uL (3.93-5.22); RDW-SD 43.8 fL; WBC 8.67 10^3/uL (4.4-10.8)
[2022-09-24 07:49] LABS: COVID-19 PCR Negative (Negative); Influenza A PCR Negative (Negative); Influenza B PCR Negative (Negative); RSV PCR Negative (Negative)
[2022-09-24 07:51] LABS: Source Nasopharynx
[2022-09-24 08:15] LABS: ALT 85 U/L (14-59); AST 54 U/L (15-37); Albumin 4.1 g/dL (3.4-5.0); Alkaline Phosphatase 93 U/L (46-116); Anion Gap 9.9 mmol/L (3-11); BUN 16 mg/dL (7-18); Bilirubin, Total 0.5 mg/dL (0.2-1.0); CO2 28.1 mmol/L (21.0-32.0); CREATININE 1.2 mg/dL (0.55-1.02); Chloride 101 mmol/L (98-107); Estimated GFR 53.13 (mL/min/1.73m2); Glucose 123 mg/dL (74-106); Lipase 33 U/L (16-77); Magnesium 1.6 mg/dL (1.8-2.4); NT-proBNP 49 pg/mL (<300); Potassium 3.9 mmol/L (3.5-5.1); Sodium 139 mmol/L (136-145); Total Protein 7.7 g/dL (6.4-8.2); Troponin I < 50 ng/L (<or=60)
--- NOTE | 2022-09-24 08:15 | DI.CT_ITS ---
Exam(s) CT CHEST PE CTA EXAM: CT CHEST PE CTA CLINICAL HISTORY: sob, elevated dimer, r/o pe. TECHNIQUE: Imaging Protocol: Axial CT angiography was performed with multi-slice acquisition and mu lti-planar reconstructions as well as axial, coronal and sagittal MIP reconstructions. CONTRAST MATERIAL: Intravenous: Omnipaque 350 Contrast volume:100 ml COMPARISON: CT CT CHEST WO from 03/09/2022 CR XR PORTABLE CHEST AP from 09/24/2022 FINDINGS: Pulmonary Arteries: No evidence of filling defect to suggest pulmonary emboli. Tracheobronchial tree: Patent where visualized. Mediastinum and Kerri: No dominant adenopathy or fluid collection. Pulmonary parenchyma: No consolidation or dominant measurable mass. Pleura: No effusion or pneumothorax. Heart: The heart is not dilated. No coronary artery calcifications are seen. Aorta: Thoracic aorta non-dilated. No aneurysm. No dissection. Upper abdomen: Severe fatty infiltration of the liver. Bones: Unremarkable for age. Tubes, Catheters, and Lines: IMPRESSION: No evidence of pulmonary embolism or other acute abnormality.. RADIATION DOSE DELIVERED: 405.37mGy.cm Total DLP DATA REPOSITORY: All CT scans at this facility are submitted to the National Radiology Data Registry (NRDR) Dose Index Registry (DIR) with the [employer] (ACR). RADIATION OPTIMIZATION: All CT scans at this facility use at least one of these dose optimization te chniques: automated exposure control; mA and/or kV adjustment per patient size (includes targeted exa ms where dose is matched to clinical indication); or iterative reconstruction.
[2022-09-24 08:24] LABS: D-Dimer 579 ng/mlFEU (<500)
[2022-09-24] MEDS: Normal Saline Flush 10 ML SYR IVP (09:09)
[2022-09-24] MEDS: Omnipaque 350 MG/ML 500 ML BTL-Imaging package IJ (09:09)
[2022-09-24] MEDS: Normal Saline - Diluent 50 ML VIAL IJ (09:09)
--- NOTE | 2022-09-24 09:30 | RT.EKG_ITS ---
APPROVED REPORT Exam: Resting ECG Reason for Exam: sob Patient Location: E HR:87 bpm ECG Measurements Heart Rate 87 AXIS WI 150 P 69 QRSd 78 QRS 42 QT 369 T 49 QTc 444 Conclusion Sinus rhythm...normal P axis, V-rate 60- 99 Low voltage, extremity leads...all extremity leads <0.5mV Nonspecific T abnormalities, anterior leads...T <-0.10mV, V2-V4 Physician: inverted t waves in anterior leads, unchanged from prior ekg
[2022-09-24] MEDS: Dexamethasone 10 MG/ML VIAL IVP (09:42)
[2022-09-24] MEDS: Albuterol HFA 8 GM 60 PUFF INH IH (09:43)
[2022-09-24] MEDS: Inhaler, Assist Device 1 EACH MC (09:44)
[2022-09-24 09:49] LABS: Troponin I < 50 ng/L (<or=60)
[2022-09-24 10:27] VITALS: BP 136/72; PULSE 84; RESP 16; TEMP 37.2; O2SAT 97
== END 2022-09-24 10:35 | disposition home or self-care (01) ==
PROVIDERS: Emergency Medicine; Emergency Provider Student in an Organized Health Care Education/Training Program; PCP Nurse Practitioner Family
DX: J45.901 Unspecified asthma with (acute) exacerbation (principal); I10 Essential (primary) hypertension; Z20.822 Contact with and (suspected) exposure to COVID-19; Z79.82 Long term (current) use of aspirin; Z87.891 Personal history of nicotine dependence
CPT/HCPCS: 36415; 71275; 80053; 83690; 87637; 93005; 96374; 96375; 99285; 71045; 83735; 83880; 84484; 85025; 85379; 93010; J1100; J2930; J7620

== ENCOUNTER 2022-09-27 03:26 | Emergency (ER) | payer MEDICAID, SELFPAY ==
[2022-09-27 03:36] VITALS: BP 130/70; PULSE 77; RESP 20; TEMP 36.7; O2SAT 95
--- NOTE | 2022-09-27 03:45 | DI.CT_ITS ---
Exam(s) CT RENAL COLIC WO EXAM: CT RENAL COLIC WO CLINICAL HISTORY: R flank pain. TECHNIQUE: Imaging Protocol: Axial computed tomography images with coronal and sagittal reformatted images were created and reviewed CONTRAST MATERIAL: Intravenous: none Oral: None COMPARISON: CT CT CHEST PE CTA from 09/24/2022 FINDINGS: VISUALIZED LUNG BASES: No nodules nor pleural effusions evident. ABDOMEN: There is no ascites. LIVER: Liver is hypodense implying severe steatosis. There are no discrete focal hepatic lesions richie dent. No dilated intrahepatic ducts. GALLBLADDER/BILIARY: No obvious gallbladder pathology. CBD is not dilated. PANCREAS: No evidence of pancreatic mass nor dilatation of the pancreatic duct. SPLEEN: Spleen is not enlarged. No obvious intrasplenic lesions. ADRENALS: There are no significant adrenal masses. KIDNEYS:Right kidney unremarkable. There appear to be parapelvic cysts in left kidney. No solid carter al masses. No calculi nor hydronephrosis nor hydroureter... ABDOMINAL AORTA: Abdominal aorta is not enlarged. LYMPH NODES: There is no retroperitoneal nor paraaortic adenopathy. ABDOMINAL WALL: No evidence of significant anterior abdominal wall nor inguinal hernia. GI: There is no evidence of bowel obstruction, free air, nor abscess. PELVIS: LYMPH NODES: There is no intrapelvic nor inguinal adenopathy. GI: No evidence of appendicitis.No evidence of sigmoid diverticulitis. URINARY BLADDER: No calculi nor obvious masses evident REPRODUCTIVE: Uterus is atrophic or surgically absent. No abnormal adnexal masses. No free fluid in the pelvis. OSSEOUS: No significant osseous lesions. No fractures. There are is increased density in both sides SI joints consistent with probable cyst element of sacro iliitis. Also disc space narrowing at L4-5 level and mild anterolisthesis L5 upon S1 due to pars def ects at L5 level. IMPRESSION: 1. Hepatic steatosis. Mild hepatomegaly. No discrete focal hepatic lesions. 2. Parapelvic cysts in the left kidney noted. No other renal findings. No true hydronephrosis. No calculi evident. 3. Mild anterolisthesis L5 upon S1 due to bilateral L5 pars defects. First read by [facility]. RADIATION DOSE DELIVERED: 863.03mGy.cm Total DLP DATA REPOSITORY: All CT scans at this facility are submitted to the National Radiology Data Registry (NRDR) Dose Index Registry (DIR) with the [employer] (ACR). RADIATION OPTIMIZATION: All CT scans at this facility use at least one of these dose optimization te chniques: automated exposure control; mA and/or kV adjustment per patient size (includes targeted exa ms where dose is matched to clinical indication); or iterative reconstruction.
--- NOTE | 2022-09-27 03:48 | ED.GENADUL_ITS ---
Discharge Plan Disposition Patient Disposition: Home Discharge Details Clinical Impression: Renal colic on right side Primary Care Provider: Ronn Ross ED Provider: Philipp Manley Home Meds and New Rx's Prescriptions: New hydrocodone-acetaminophen 5-325 mg tablet 1 tab PO Q8H PRN (Reason: pain) Qty: 7 0RF Continued pantoprazole 40 mg tablet,delayed release (DR/EC) See Rx Instructions .ROUTE .COMPLEX Qty: 90 3RF Dose Instruction: TAKE ONE TABLET BY MOUTH EVERY DAY Rx Instructions: TAKE ONE TABLET BY MOUTH EVERY DAY aspirin [Aspir-81] 81 MG tablet,delayed release (DR/EC) 81 mg PO DAILY Qty: 30 0RF Patient Comments: pt stopped med Medical Decision Making 57-year-old female presents from home with development approximately 12 hours ago of right-sided abdominal and flank pain. She notes it is severe and constant. She has not had a fever and denies nausea. On arrival the patient is well-appearing, and has normal vital signs. She does demonstrate right flank and right mid abdomen tenderness on exam but no evidence of peritonitis. Most consistent with renal colic. Patient had IV access established, screening labs and urine obtained. She is given parenteral analgesia and referred for CT images. Labs note a white count of 7, hematocrit 39 and platelets 250. Sodium 137, potassium 4.1, chloride 104, bicarb 26, BUN 16, creatinine 1.1. AST 52, ALT 91, total bili 0.5. Urine is with the specific gravity of 1.025, trace blood is present. CT images do not identify an obstructive ureteral calculus. Please see the formal report. With the patient's presentation, hematuria, and CT imaging which appears to show question of mid ureteral calculus, I do feel this is likely ureteral colic. I consented her for the use of a small number of narcotics at home if needed. She will continue to push fluids. She understands indications to return to the ER HPI General Mode of arrival: ambulatory . Date/Time Provider Initiated Documentation: 09/27/22 03:27 . Limitations to Documentation: no limitations . Information obtained by: patient . History of Present Illness 57 year old F presents to the emergency department with the chief complaint of Right flank pain, described as severe, Quality is described as constant, and is localized to the back, abdomen and right. Patient reports radiation to back. Patient started experiencing this hour(s) and it has been constant. No relieving factors improve symptom(s), No exacerbating factors reported . Patient notes denies fever/chills. Patient did receive the following treatments prior to arrival, none Related Data Home Medications Medication Instructions Recorded Confirmed aspirin 81 mg tablet,delayed 81 mg PO DAILY ##30 01/04/13 09/27/22 release (Aspir-) pantoprazole 40 mg tablet,delayed See Rx Instructions .Route 08/08/22 09/27/22 release .COMPLEX #90 tabs hydrocodone 5 mg-acetaminophen 325 1 tab PO Q8H PRN pain #7 tabs 09/27/22 mg tablet Previous Rx's Medication Instructions Recorded aspirin 81 mg tablet,delayed 81 mg PO DAILY ##30 01/04/13 release (Aspir-) pantoprazole 40 mg tablet,delayed See Rx Instructions .Route 08/08/22 release .COMPLEX #90 tabs hydrocodone 5 mg-acetaminophen 325 1 tab PO Q8H PRN pain #7 tabs 09/27/22 mg tablet Allergies Allergy/AdvReac Type Severity Reaction Status Date / Time No Known Allergies Allergy Verified 02/27/22 15:35 General Stated Complaint: Abd Prob JUNO: 3 Review of Systems Narrative: No fever. No vomiting. Was seen for asthma exacerbation earlier in the week that is improving. 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 Clean coronaries 2008. Negative MPI July 2012. Hyperlipidemia (Chronic) Relative hyperlipidemia, we set LDL target of 70. Last LDL 100 off therapy. Medical History History of surgery S/P Lap assisted vaginal hysterectomy including oophorectomy. S/P section x two. S/P cardiac catheterization. Menopausal symptom Following oophorectomy. Plantar fasciitis, right Family History Mother Stroke Father , CAR ACCIDENT No problems noted. Sister , SHOT BY BOYFRIEND No problems noted. Sister Neoplasm Sister Neoplasm Social History Smoking/Tobacco Use Status: Former Tobacco Use Quit Date: 04/12/22 Smoking risk assessment performed?: Yes Alcohol Intake: current Alcohol Intake frequency: a few times a month Drug use: Current Sobriety Substance use type: does not use Do you feel safe at home: Yes Do you feel safe in your relationship?: Yes Exam Narrative Exam Narrative: GEN: awake, alert, oriented 3. Pleasant, well groomed, interactive. HEAD: Normocephalic, atraumatic ENT: Mucous membranes moist, oropharynx unremarkable, External ear exam unremarkable EYES: PERRL, EOMI NECK: Full ROM, no KODAK, no menigismus CHEST/RESP: Nontender, clear to auscultation bilateral, no wheeze/rhonchi/rales CARDIOVASCULAR: RRR, no murmur, rub macario. 2+ Rad pulse bilateral ABDOMEN: Soft, tender right mid abdomen and right flank, no rebound tenderness, no mass. +Bowel sounds EXT: Full ROM, no edema, no rash Neuro: Grossly normal neurologic exam, conversant, interactive. Psych: Speech fluent, thoughts congruent, affect normal Course Vital Signs Vital signs: Vital Signs Temperature 36.7 C 09/27/22 03:36 Pulse 77 09/27/22 03:36 Respiratory Rate 20 09/27/22 03:36 Blood Pressure 130/70 09/27/22 03:36 Pulse Oximetry 95 09/27/22 03:36 Temperature 36.7 C 09/27/22 03:36 Temperature Source Oral 09/27/22 03:36 Pulse 77 09/27/22 03:36 Respiratory Rate 20 09/27/22 03:36 Respiratory Effort Normal 09/27/22 03:40 Blood Pressure 130/70 09/27/22 03:36 Blood Pressure Position Sitting 09/27/22 03:36 Pulse Oximetry 95 09/27/22 03:36 Oxygen Delivery Method Room Air 09/27/22 03:36 Oxygen Flow Rate 0 09/27/22 03:36 Pain Level 10 09/27/22 03:36 PAWSS Have you Been Recently Intoxicated or Drunk Within the Last 30 days?: No Have you Ever Experienced Previous Episodes of Alcohol Withdrawal?: No Have you ever Experienced Withdrawal Seizures?: No Have you ever Experienced Delirium Tremens(DT)s?: No Have you ever undergone Alcohol Rehabilitation Treatment (i.e, inpt ot outpatient treatment programs)?: No Have you ever Experienced Blackouts?: No Have you ever Combined Alcohol with other Downers within the last 90 days?: No Have you ever Combined Alcohol with any other Substance of Abuse during the last 90 days?: No Positive Blood Alcohol level on Presentation? [PCS.BAL]: No Evidence of Increased Autonomic Activity (i.e. HR>120, tremor, sweating, agitation, nausea)?: No Result: 0
[2022-09-27] MEDS: Ketorolac 15 MG/ML VIAL IVP (03:56)
[2022-09-27] MEDS: HYDROmorphone 2 MG/ML SYR 0.5 MG IVP ×2 (03:57→04:42)
[2022-09-27 04:10] LABS: Absolute Basophil Count 0.04 10^3/uL (0.0-0.2); Absolute Eosinophil Count 0.14 10^3/uL (0.0-0.7); Absolute Lymphocyte Count 3.52 10^3/uL (1.2-3.4); Absolute Monocyte Count 0.63 10^3/uL (0.1-0.8); Absolute Neutrophil Count 3.31 10^3/uL (1.2-6.7); Basophils % 0.5; Eosinophils % 1.8; HCT 39.5 % (36.0-46.0); HGB 13.4 g/dL (11.2-15.7); Immature Grans % 1.3; Lymphocytes % 45.5; MCH 33.3 pg (27.0-33.0); MCHC 33.9 % (32.0-36.0); MCV 98 fL (80-95); MPV 10.2 fL (8.0-11.0); Monocytes % 8.1; Neutrophils % 42.8; Platelet Count 250 10^3/uL (130-400); RBC 4.03 10^6/uL (3.93-5.22); RDW 12.4 % (11.7-14.6); RDW-SD 44.8 fL; WBC 7.74 10^3/uL (4.4-10.8)
[2022-09-27 04:37] LABS: ALT 91 U/L (14-59); AST 52 U/L (15-37); Albumin 3.8 g/dL (3.4-5.0); Alkaline Phosphatase 81 U/L (46-116); Anion Gap 6.9 mmol/L (3-11); BUN 16 mg/dL (7-18); Bilirubin, Total 0.5 mg/dL (0.2-1.0); CO2 26.1 mmol/L (21.0-32.0); CREATININE 1.1 mg/dL (0.55-1.02); Calcium 8.7 mg/dL (8.5-10.1); Chloride 104 mmol/L (98-107); Estimated GFR 58.97 (mL/min/1.73m2); Glucose 103 mg/dL (74-106); Magnesium 1.8 mg/dL (1.8-2.4); Potassium 4.1 mmol/L (3.5-5.1); Sodium 137 mmol/L (136-145)
[2022-09-27] MEDS: Ondansetron 4 MG/2 ML VIAL IVP (04:41)
[2022-09-27 05:20] LABS: Bilirubin Negative (Negative); Blood Trace-intact (Negative); Clarity Sl Cloudy (Clear); Glucose Negative (Negative); Ketones Negative (Negative); Leukocyte Esterase Negative (Negative); Nitrite Negative (Negative); Specific Gravity 1.025 (1.005-1.025); Urobilinogen 0.2 EU/dL (Up TO 0.2); pH 5.5 (5-8)
[2022-09-27 05:45] LABS: Epithelial Cells Many HPF (Negative); RBC 0-2 HPF (0-2); WBC 0-2 HPF (0-5)
[2022-09-27 05:46] LABS: Bacteria Moderate HPF (Negative); C & S Indicated? No/Sq. Contamination; Crystals Negative HPF (Negative); Mucus Negative (Negative)
[2022-09-27] MEDS: HYDROmorphone 2 MG/ML SYR 1 MG IVP (06:11)
--- NOTE | 2022-09-27 07:18 | DI.VRAD_ITS ---
PROCEDURE INFORMATION: Exam: CT Abdomen And Pelvis Without Contrast Exam date and time: 09/27/2022 4:35 AM Age: 57 years old Clinical indication: Other: Right flak pain TECHNIQUE: Imaging protocol: Computed tomography of the abdomen and pelvis without contrast. COMPARISON: CT CHEST PE CTA 09/24/2022 8:57 AM FINDINGS: Lungs: The visualized lung bases show no consolidation. Liver: The liver is mildly enlarged, measuring 18.2 cm in length at the mid axillary line. There is hepatic steatosis with focal fatty sparing adjacent to the gallbladder fossa. Gallbladder and bile ducts: The gallbladder is normal. No gallstones are identified. Pancreas: The pancreas is normal. Spleen: The spleen is normal in size and density. Adrenal glands: The adrenal glands are normal. Kidneys and ureters: There is no hydronephrosis. No renal or obstructive ureteral calculi are identified. There are simple appearing parapelvic cysts in the left kidney as large as 2.4 x 0.8 cm. Stomach and bowel: There is no evidence of small bowel or colonic obstruction. Appendix: A normal appendix is identified. Intraperitoneal space: No free air. No significant fluid collection. Vasculature: There is mild atherosclerotic calcification of the abdominal aorta and its branches without aneurysm. Lymph nodes: No enlarged retroperitoneal or mesenteric lymph nodes. Urinary bladder: The bladder shows a normal contour and is free of calcific opacities. Reproductive: Unremarkable as visualized. Bones/joints: There is facet arthrosis at L3-L4, L4-L5 and L5-S1. There are bilateral pars defects at L5 and minimal grade 1 anterolisthesis of L5. There is mild grade 1 retrolisthesis of L4. Soft tissues: Unremarkable. IMPRESSION: 1. Hepatomegaly and hepatic steatosis. 2. No hydronephrosis. No renal or obstructive ureteral calculi. There is simple appearing parapelvic cysts in the left kidney. 3. Bilateral pars defects at L5 with minimal anterolisthesis of L5. 4. Multilevel facet arthrosis and mild retrolisthesis of L4. Dictated and Authenticated by: Sridhar Whitten MD. Ordering:JR Segal MD
[2022-09-27 07:25] VITALS: BP 129/71; PULSE 67; TEMP 37; O2SAT 96
== END 2022-09-27 08:08 | disposition home or self-care (01) ==
PROVIDERS: Emergency Provider Emergency Medicine; PCP Nurse Practitioner Family
DX: N23 Unspecified renal colic (principal)
CPT/HCPCS: 80053; 96374; 96375; 96376; 99284; 74176; 81003; 81015; 83735; 85025; J1170; J1885; J2405

== ENCOUNTER 2022-09-28 21:01 | Outpatient (REF) | payer MEDICAID, SELFPAY ==
[2022-09-28 21:13] LABS: Anion Gap 7.2 mmol/L (3-11); BUN 13 mg/dL (7-18); CO2 27.8 mmol/L (21.0-32.0); CREATININE 1.1 mg/dL (0.55-1.02); Calcium 8.6 mg/dL (8.5-10.1); Chloride 102 mmol/L (98-107); Estimated GFR 58.97 (mL/min/1.73m2); Glucose 145 mg/dL (74-106); Sodium 137 mmol/L (136-145)
== END 2022-09-28 21:02 | disposition home or self-care (01) ==
LOC: LBN 21:01
PROVIDERS: PCP Nurse Practitioner Family; Visit Provider Nurse Practitioner Family
DX: N23 Unspecified renal colic (principal)
CPT/HCPCS: 80048

== ENCOUNTER 2022-10-02 01:03 | Outpatient (CLI) | payer MEDICAID, SELFPAY ==
--- NOTE | 2022-10-02 07:00 | DI.US_ITS ---
Exam(s) US RENAL EXAM: US RENAL CLINICAL HISTORY: continued pain right flank,RENAL COLIC,N23. TECHNIQUE: Byers scale, color and spectral Doppler were used. COMPARISON: US PELVIS TRANSVAG from 09/29/[address] RENAL COLIC WO from 09/27/2022 FINDINGS: Renal size in cm: Right: 8.0. Left: 11.7. Echogenicity: Normal. Hydronephrosis: No. Cyst or mass: There are small simple parapelvic cysts on the left. Nephrolithiasis: No. Other findings: Incidental note is made of fatty infiltration of the liver. Bladder:Normal. Ureteral jets: Right: Visualized and unremarkable. Left: Visualized and unremarkable. Prevoid vol:116 cc Postvoid vol:5 cc Renal color flow: Symmetric and within normal limits. IMPRESSION: No acute abnormality. No evidence of hydronephrosis or nephrolithiasis. DATA REPOSITORY:
== END 2022-10-02 01:23 ==
LOC: DI 01:03
PROVIDERS: PCP Nurse Practitioner Family; Visit Provider Nurse Practitioner Family
DX: N23 Unspecified renal colic (principal)
CPT/HCPCS: 76770

== ENCOUNTER 2023-03-01 10:05 | Day surgery (SDC) | payer MEDICAID, SELFPAY ==
--- NOTE | 2023-02-28 16:04 | PDOC.DSDIS_ITS ---
Date of service: 03/01/23 Time of Service: 11:38 Discharge Plan Disposition Patient Disposition: Home Condition: Good Discharge Details Reason For Visit: Colonoscopy Attending Provider: Peg Lewis Primary Care Provider: Ronn Ross Home Meds and New Rx's Prescriptions: Continued pantoprazole 40 mg tablet,delayed release (DR/EC) See Rx Instructions .ROUTE .COMPLEX Qty: 90 3RF Dose Instruction: TAKE ONE TABLET BY MOUTH EVERY DAY Rx Instructions: TAKE ONE TABLET BY MOUTH EVERY DAY Held aspirin [Aspir-81] 81 MG tablet,delayed release (DR/EC) 81 mg PO DAILY Qty: 30 0RF Hold Instructions: Resume on 03/06/23. Patient Comments: pt stopped med Discontinued bisacodyl [Dulcolax (bisacodyl)] 5 mg tablet,delayed release (DR/EC) 5 mg PO ONCE Qty: 4 0RF Rx Instructions: Take per colonoscopy instructions provided by ordering providers office polyethylene glycol 3350 17 gram/dose powder 17 g PO ONCE Qty: 238 0RF Rx Instructions: Take per colonoscopy instructions provided by ordering providers office Discharge Instructions Additional Instructions: DSU Colonoscopy Post- Op Instructions Instructions for Everyone who is given Anesthesia: For your safety, please do the following for the next twenty-four (24) hours: *Do Not operate a motor vehicle (car, truck, motorcycle, etc.) *Do Not drink alcoholic beverages or use any recreational drugs for the first 24 hours or while taking pain medications. The medications in your body may have a reaction that can be dangerous. *Do Not make any important decisions or sign any important papers. Findings: Minor diverticular disease. Take sure you are aware of moving your bowels on a regular basis and not straining. If you find you have problems with constipation, then we recommend taking a fiber supplement daily such as Metamucil. -Large colon polyp. My office will send a letter in 2 to 3 weeks time with the biopsy results and when we want you to repeat repeat the colonoscopy, most likely 3 years time. 1. No lifting over 20 pounds or strenuous activity for the first 24 hours after your procedure. After 24 hours there are no restrictions on your activity but you may feel fatigued for a few days. 2. After you arrive home you may have a light meal and return to your normal diet as you can tolerate it without feeling sick to your stomach. 3. You may have a bloated, gaseous feeling in your belly (abdomen) after a colonoscopy. Passing gas and belching will help. Walking or lying down on your left side with your knees flexed may relieve the discomfort. Call the office at [phone] (Office) or [phone] (Hospital) right away if you notice any of the following: a.Vomiting of blood or ?coffee ground stools?. b.Rectal bleeding 1Tbsp, blood clots or continuous bleeding. c.Severe belly (abdominal) pain. d.A hard distended belly (abdomen) and an inability to pass gas. 4. Please don?t expect to have a normal BM (bowel movement) for 2-3 days after your procedure. 5. If there are questions regarding the findings of your procedure, please contact your doctor 6. If you are unable to contact your doctor with a problem, contact the hospital at [phone]. 7. Continue all your regular medications unless directed otherwise. I understand the above instructions and have no questions. Signature of Patient or Adult Escort Name of Responsible Adult Escort Signature of Nurse Date/Time Stand Alone Forms: Anesthesia Discharge Inst., bAigail Roca (DSU) Activity:: See above Diet:: See above Discharge Orders Discharge Orders: Discharge Order (Routine); Ordered 03/01/23 Ordered By: Peg Lewis Discharge Data Discharge Date/Time-TO BE ENTERED AT DEPARTURE: 03/01/23 12:42 DS: Diagnosis Discharge Diagnosis (1) Coronary arteriosclerosis: Status: Chronic (2) Hyperlipidemia: Status: Chronic (3) Tobacco use disorder: Status: Acute (4) Gastroesophageal reflux disease without esophagitis: Status: Acute (5) Essential hypertension: Status: Acute (6) Lung nodule seen on imaging study: Status: Acute (7) Screening for malignant neoplasm of colon performed: Status: Acute Asessment and Plan: The patient is seen and examined after their colonoscopy.? The patient has been able to pass gas.? They are not having abdominal pain.? They have been able to tolerate liquids and a snack.? They do not have any nausea or vomiting.? They are not having any chest pain or shortness of breath.??? They are not having any rectal bleeding. Their vital signs have been stable-see nursing notes. We discussed findings during their colonoscopy, and any biopsies that were done/polyps that were removed. The patient will be sent a letter with any biopsy results, and when to repeat the colonoscopy.-see discharge instructions. Patient was given explicit instructions to follow-up regarding colonoscopy-refer to discharge instructions.? We reviewed resumption of medications. Patient verbalized understanding and discharged in stable and satisfactory condition- See nursing notes. (8) Diverticula of colon: Status: Acute (9) Adenomatous polyps: Status: Acute
--- NOTE | 2023-02-28 16:06 | W.COLOREPORT ---
Date of service: 03/01/23 Time of Service: 11:29 Colonoscopy Report Date of procedure: 03/01/23 Pre-op diagnosis general: Colon cancer screening Post-op diagnosis procedure note: other (Internal and external hemorrhoids/mild sigmoid diverticula/1.5 cm polyp at 20 cm.) Surgeon: Peg Lewis Anesthesia Type: General:No Airway Estimated blood loss (mL): 1 Pathology: other Complications: None Disposition: same day Prep: Miralax/Dulcolax Retraction Time: Treatments Procedure Description: After informed consent was obtained the patient was taken to the procedure room and placed in a left decubitous position. Monitors were applied and a time out was done. The patients name, date of , procedure, allergies to medications and metal in their body was reviewed. The patient was then sedated. Once sedated and comfortable a rectal exam was done. External exam shows a few small external hemorrhoids. The internal exam revealed a normal sphincter tone and no palpable masses. The scope was then introduced and retrofelexed. Grade 2 internal hemorrhoids x2 columns, and a few hemorrhoidal tags were identified. The scope was then advanced to the cecum difficulty. The TI and appendiceal orifice were identified. The prep was BBPS 3 in all segments for a total of 9. The scope was then slowly retracted over 16 minutes back into the rectum. She has minor diverticular disease confined to the sigmoid colon. There are no signs of active bleeding or infection. She has a large 1.5 cm polyp at 20 cm. This is removed with a hot snare. Specimen is retrieved. She has 3 or four, 5 mm polyps around this large polyp that are removed with cold biopsy forcep and sent for pathology as well. All specimen is retrieved and no bleeding is noted. The scope was removed and the patient was woken up and taken back to Same day surgery in stable condition. The patient tolerated the procedure well and there were no immediate complications. Follow up: The patient should follow up in 3 years unless they develop changes in bowel habits or other new gastrointestinal complaints.
--- NOTE | 2023-03-01 06:21 | W.ANESPRE ---
General Info Date of Service Date Performed: 03/01/23 Height: 5 ft 5 in Weight: 81.647 kg Body Mass Index (BMI): 29.9 Surgical Procedure: Operation Date: 03/01/23 10:35 Proposed Procedure Side Surgeon ankit Lewis, DO Meds Allergies and Home Medications Allergies Allergy/AdvReac Type Severity Reaction Status Date / Time No Known Allergies Allergy Verified 03/01/23 10:18 Home Medication Medication Instructions Recorded aspirin 81 mg tablet,delayed 81 mg PO DAILY ##30 01/04/13 release (Aspir-) pantoprazole 40 mg tablet,delayed See Rx Instructions .Route 08/08/22 release .COMPLEX #90 tabs Current Visit Medications: Current Medications Generic Name Dose Route Start Last Admin Trade Name Freq PRN Reason Stop Dose Admin Hyoscyamine Sulfate 0.125 mg 03/01/23 01:00 Hyoscyamine 0.125 Mg Sl/Oral/Chew SL 03/31/23 00:59 DIRECTED PRN Ringer's Solution 1,000 mls @ 80 mls/hr 03/01/23 06:00 IV 03/01/23 23:59 INFUSION [facility] IV Miscellaneous Supplies 1 each 03/01/23 06:00 Iv Access IV 03/01/23 23:59 DIRECTED MARIO Ondansetron HCl 4 mg 03/01/23 01:00 Ondansetron 4 Mg/2 Ml Vial IVP 03/31/23 00:59 Q4H PRN PRN Nausea / Vomiting Sodium Chloride 0 ml 03/01/23 06:00 Normal Saline Flush 10 Ml Syr IV 03/01/23 23:59 PRN PRN Sodium Chloride 0 ml 03/01/23 06:00 Normal Saline 10 Ml Vial IJ 03/01/23 23:59 DIRECTED PRN Sterile Water 0 ml 03/01/23 06:00 Water,Injection,Sterile 10 Ml Vial IJ 03/01/23 23:59 DIRECTED PRN PFSH Active Problems Active Problems: Problem Status Onset Code Screening for malignant neoplasm of colon performed Z12.11 Coronary arteriosclerosis I25.10 Hyperlipidemia E78.5 Tobacco use disorder F17.200 Gastroesophageal reflux disease without esophagitis 07/11/15 K21.9 Essential hypertension 07/11/15 I10 Lung nodule seen on imaging study R91.1 Medical History Medical History History of surgery S/P Lap assisted vaginal hysterectomy including oophorectomy. S/P section x two. S/P cardiac catheterization. Menopausal symptom Following oophorectomy. Plantar fasciitis, right Surgical History Surgical History (Updated 03/01/23 @ 10:17 by Mere Saleh RN) Hx of hysterectomy Tobacco Smoking/Tobacco Use Status: Former Tobacco Use Alcohol Alcohol Intake: current Alcohol intake frequency: a few times a month Substance Use Substance use: Never Substance use type: does not use Vital Signs and Lab Results Vital Signs Most Recent Vital Signs in EMR: Temp Pulse Resp BP Pulse Ox 36.5 C 75 18 106/73 95 03/01/23 10:19 03/01/23 10:19 03/01/23 10:19 03/01/23 10:19 03/01/23 10:19 Lab Results Blood Type / Crossmatch: No Data to Display Complete Blood Count: No Data to Display Complete Metabolic Panel: No Data to Display Liver Function Panel: No Data to Display Coagulation Panel: No Data to Display Cardiac Panel: No Data to Display Arterial Blood Gas: No Data to Display Venous Blood Gas: No Data to Display Pancreas Panel: No Data to Display Thyroid Panel: No Data to Display Infectious Disease: No Data to Display Blood Cultures: No Data to Display Toxicology Panel: No Data to Display Imaging and Studies Imaging and Studies Study information below may be from another EMR and interpreted by another provider. Please see original notes in EMR for more complete details. EKG Summary: 10/04: sinus. Stress Test Summary: 07/28: normal study, LVEF 51%. Anesthesia Assessment and Plan Anesthesia History Personal History: No History of Anesthesia Complications Family History: No Family History of Anesthesia Complications Exercise Tolerance Exercise Tolerance: Metabolic Equivalents>4 Cardiac & Pulmonary Exam Cardiac Exam: Normal S1/S2 Heart Sounds Pulmonary Exam: Clear Bilateral Breath Sounds Implantable Cardiac Device Does patient have a Pacemaker or an ICD?: No Airway Exam Known Difficult Airway: No Mallampati Class: 3 Mouth Opening: Normal (> 3cm) Thyromental Distance: Greater than 3 cm Neck Range of Motion: Full ROM Neck Circumference: Normal Teeth Condition: Normal Dentition ASA Classification ASA Score: ASA 2 Emergency Case?: No NPO Status NPO Status: NPO Clears >2 hours, Solids >8 hours Anesthesia Plan Resuscitation Status: Full Code Anesthesia Technique: General Anesthesia Airway Planned: Natural Airway Monitors Used: Standard Monitors Preoperative Comments:: 57 yo female for colo. Sig PMHx: NSTEMI 2005 (clean cath 2008, negative stress 2011), GERD (pantoprazole), HTN, lung nodule. former smoker, occ EtOH.
[2023-03-01 10:19] VITALS: BP 106/73; PULSE 75; RESP 18; TEMP 36.5; O2SAT 95
[2023-03-01] MEDS: Lactated Ringers 1,000 ML 80 ML IV (10:27)
[2023-03-01 10:31] VITALS: BMI 29.9
--- NOTE | 2023-03-01 11:15 | BOWEL_PTH ---
PATIENT: Melvin Graves LOC: [facility] U#:[id number] AGE/SX: 57/F ROOM: RE03/01/[address]: Peg Lewis : 1965 BED: DIS: 03/01/2023 SPEC #: [id number] RECD: 03/01/23 12:49 STATUS: TANNER REQ #: [id number] CLARITA: 03/01/23 11:[address]: Peg Lewis DEPT: Surgical Specimen RECD BY: Siena Lopez ENTERED: 03/01/23 12:50 SP TYPE: Bowel OTHR DR: Ronn Buckley, JACK Tissues: 1 - BIOPSY BOWEL Procedures: GROSS AND MICRO LEVEL 4 Comments: [id number]
[2023-03-01 11:23] VITALS: BP 83/63; PULSE 77; RESP 16; TEMP 36.6; O2SAT 97
[2023-03-01] MEDS: Hyoscyamine 0.125 MG SL/ORAL/CHEW SL (11:34)
[2023-03-01 11:50] VITALS: BP 110/76; PULSE 80; RESP 18; TEMP 36.8; O2SAT 99
--- NOTE | 2023-03-01 12:09 | W.ANESPOSTOP ---
Postoperative Evaluation Date, Time and Location Date Performed: 03/01/23 Time Performed: 12:09 Patient Location: Day Surgery Unit Vital Signs Most Recent Imported Vital Signs: Most Recent Vital Signs Temp Pulse Resp BP Pulse Ox 36.6 C 77 16 83/63 L 97 03/01/23 11:23 03/01/23 11:23 03/01/23 11:23 03/01/23 11:23 03/01/23 11:23 Pain Score Most Recent Pain Score: Most Recent Pain Score Pain Level 0 03/01/23 10:19 Assessment Mental Status: Awake (Alert & Oriented to Patient Baseline) Airway and Respiratory Function: Patent airway with normal (patient baseline) respiratory exam Cardiovascular Function: Hemodynamically Stable Hydration Status: Adequately Hydrated Nausea & Vomiting: No Nausea or Vomiting Pain: Pt. Denies Any Pain Peripheral Nerve Block: Patient did not receive a nerve block
== END 2023-03-01 12:42 | disposition home or self-care (01) ==
PROVIDERS: PCP Nurse Practitioner Family; Visit Provider Surgery
PROC: 0DJD8ZZ Inspection of Lower Intestinal Tract, Via Natural or Artificial Opening Endoscopic (ICD-10-PCS; CPT 45378; principal; 2023-03-01 10:30)
DX: Z12.11 Encounter for screening for malignant neoplasm of colon (principal); K64.4 Residual hemorrhoidal skin tags; K57.30 Diverticulosis of large intestine without perforation or abscess without bleeding; K64.1 Second degree hemorrhoids; D37.4 Neoplasm of uncertain behavior of colon
CPT/HCPCS: 45385; 45380; 88305; J3490

== ENCOUNTER 2023-06-18 06:02 | Day surgery (SDC) | payer MEDICAID, SELFPAY ==
--- NOTE | 2023-06-17 14:16 | HPE_ITS ---
Date of service: 06/18/23 Time of Service: 07:33 Assessment and Plan Assessment and plan (1) Villous adenoma of rectum: Status: Acute Assessment and plan: Plan: Colonoscopy w/ general & natural airway. Informed consent is obtained for the procedural (explained in simple layman's terms that?the pt and/or family could understand) explaining risks vs benefits and alternatives to the procedure and consequences if we do not do the procedure and need/rational for the procedure. Risks include but are not limited to: bleeding, infection, perforation of colon.? This would necessitate emergency surgery to repair the damage w/ possible ostomy; and other associated complications w/ the required surgery. ? Also complications of anesthesia including aspiration, UT/CVA/, inability to complete the procedure. I discussed with the?patient would they could expect during the procedure, post procedure and recovery time and risks.? The patient understands that they need to have a ride home after the procedure.? The patient was given all this information in writing and expressed understanding. Generally Colonoscopy does not require antibiotics prophylaxis, (2) Diverticula of colon: Status: Acute (3) Coronary arteriosclerosis: Status: Chronic (4) Hyperlipidemia: Status: Chronic (5) Tobacco use disorder: Status: Acute (6) Gastroesophageal reflux disease without esophagitis: Status: Acute (7) Essential hypertension: Status: Acute (8) Lung nodule seen on imaging study: Status: Acute History of Present Illness Narrative: Today: Patient is here today for colonoscopy for villous adenoma with high-grade dysplasia at 20 cm.??? They completed a bowel prep with just a clear yellow residual effluent.? They not having any chest pain or shortness of breath, currently.? They are not experiencing any fever or chills.? They deny any productive cough or upper respiratory tract infection signs or symptoms.? They are not having abdominal pain, or nausea and vomiting.? They have not had any changes in medications, past medical history or past surgical history since previously being seen in the office. They have not had any accidents or have been in the ER since the clinic pre-operative evaluation. ??I reviewed the procedure with the patient today, including risks and benefits of the procedure, and what they could expect at home for recovery.? All questions are answered to the patient?s satisfaction today, and they are stable to proceed with the proposed procedure. clinic 03/28 Villous adenoma w/ dysplasia of rectum: Patient is here today for follow-up from her recent colonoscopy. She had no problems with the prep, the procedure, or the anesthesia. She had no pain or bleeding after the procedure. Her pathology did show a villous adenoma at 20 cm with high-grade dysplasia. We discussed what this means, that she has a high risk polyp that is the high propensity to turn into colon cancer and that this needs to be followed very very closely it is imperative that she has irregular colonoscopies. We discussed discussed options including primary surgical resection versus continued close observation with endoscopy. I discussed did discuss with her that this would be a difficult area for resection especially coupled with her history of previous hysterectomy. We discussed that she is a high risk of developing colon cancer with frequent observation versus the possibility of complications from surgery such as hernia/anastomotic failure or nerve injury. At this time patient elects to continue with frequent surveillance with the understanding that that puts her at a slightly higher risk for developing cancer. She was counseled on smoking cessation high-fiber Mediterranean style diet. That her children should also be having frequent colonoscopies starting at age 45. We will plan on repeat colonoscopy in June/July what is ever most comfortable for her schedule. We discussed warning signs including pain or difficulty moving her bowels, persistent bleeding, or unexplained weight loss. If those should occur she should contact our clinic. All questions are answered to her satisfaction. And she is scheduled for repeat endoscopy CE 02/28/23 The scope was then introduced and retrofelexed. Grade 2 internal hemorrhoids x2 columns, and a few hemorrhoidal tags were identified. The scope was then a dvanced to the cecum difficulty. The TI and appendiceal orifice were identified. The prep was BBPS 3 in all segments for a total of 9. The scope was then slowly retracted over 16 minutes back into the rectum. She has minor diverticular disease confined to the sigmoid colon. There are no signs of active bleeding or infection. She has a large 1.5 cm polyp at 20 cm. This is removed with a hot snare. Specimen is retrieved. She has 3 or four, 5 mm polyps around this large polyp that are removed with cold biopsy forcep and sent for pathology as well. All specimen is retrieved and no bleeding is noted. The scope was removed and the patient was woken up and taken back to Same day surgery in stable condition. Review of Systems All systems reviewed & are unremarkable except as noted in HPI and below PFSH All Active Problems Villous adenoma of rectum (Acute) high grade dysplasia. Repeat CE in 07/04 Diverticula of colon (Acute) Lung nodule seen on imaging study (Acute) 03/02- Main ER- RUL, CT recommended/ ordered Essential hypertension (Acute 07/11/15) Gastroesophageal reflux disease without esophagitis (Acute 07/11/15) Tobacco use disorder (Acute) Hyperlipidemia (Chronic) Relative hyperlipidemia, we set LDL target of 70. Last LDL 100 off therapy. Coronary arteriosclerosis (Chronic) 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 Clean coronaries 2008. Negative MPI July 2012. Medical History Plantar fasciitis, right History of surgery S/P Lap assisted vaginal hysterectomy including oophorectomy. S/P section x two. S/P cardiac catheterization. 2005 Menopausal symptom Following oophorectomy. Surgical History History of cardiac catheterization 2006 History of colonoscopy (~02/2023) Hx of hysterectomy Family History Mother Stroke Father , CAR ACCIDENT No problems noted. Sister , SHOT BY BOYFRIEND No problems noted. Sister Neoplasm Sister Neoplasm Social History Smoking/Tobacco Use Status: Former Tobacco Use Quit Date: 04/12/22 Smoking risk assessment performed?: Yes Alcohol Intake: current Alcohol Intake frequency: a few times a month Drug use: Never Substance use type: does not use Housing: apartment Do you feel safe at home: Yes Do you feel safe in your relationship?: Yes Additional Social history: live with grandson Meds Allergies and Home Medications Allergies Allergy/AdvReac Type Severity Reaction Status Date / Time No Known Allergies Allergy Verified 06/18/23 06:30 Home Medications Medication Instructions Recorded Confirmed Type aspirin 81 mg tablet,delayed 81 mg PO DAILY ##30 01/04/13 06/18/23 Rx release (Aspir-) pantoprazole 40 mg tablet,delayed See Rx Instructions .Route 12/28/22 11/07/23 Rx release .COMPLEX #90 tabs Exam Narrative Exam Narrative: PHYSICAL EXAM GENERAL APPEARANCE: Alert, healthy appearance, oriented, x 3,? in no acute distress HYDRATION: Well hydrated HEAD, EYES, EARS, NECK, THROAT: Head is normocephalic, pupils equal, round, reactive to light and accommodation, ocular movement intact, sclera clear and no jaundice. ?Dentition intact. LUNGS: normal respiration/normal chest excursion. ?Clear to auscultation bi laterally. ?No wheeze. ?HEART: Regular rate and rhythm. no murmurs ABDOMEN: soft and non-tender to palpation.? Normal bowel sounds. Time Spent Time spent with Patient: <40 minutes Time was spent: preparing to see the patient(eg.review tests), obtaining and/or reviewing separately otained hiistory, ordering medications,tests, procedures, referring, communicating with other health pediatric acute care unit nurse, indepentently interpreting results, counseling the patient and care coordination
--- NOTE | 2023-06-17 18:50 | W.COLOREPORT ---
Date of service: 06/18/23 Time of Service: 08:15 Colonoscopy Report Date of procedure: 06/18/23 Pre-op diagnosis general: dysplastic polyp at 20cm Surgeon: Peg Lewis Anesthesia Type: General:No Airway Complications: None Disposition: same day Prep: Miralax/Dulcolax Retraction Time: 8 Procedure Description: After informed consent was obtained the patient was taken to the procedure room and placed in a left decubitous position. Monitors were applied and a time out was done. The patients name, date of , procedure, allergies to medications and metal in their body was reviewed. The patient was then sedated. Once sedated and comfortable a rectal exam was done. External exam: Small external hemorrhoids. internal exam revealed a normal sphincter tone and no palpable masses. The scope was then introduced and retrofelexed. No internal hemorrhoids were identified. The scope was then advanced to the cecum w/out difficulty. The TI and appendiceal orifice were identified. The prep was BBPS 3 in all segments for a total of 9 she has few small scattered diverticula in the sigmoid colon. There is no signs of active bleeding or infection. There are no signs of recurrence polypoid disease at 20 cm. No other polyps are visualized today.. The scope was then slowly retracted over 8 minutes back into the rectum. the scope was removed and the patient was woken up and taken back to Same day surgery in stable condition. The patient tolerated the procedure well and there were no immediate complications. Follow up: The patient should follow up in 8 years unless they develop changes in bowel habits or other new gastrointestinal complaints.
--- NOTE | 2023-06-17 18:54 | PDOC.DSDIS_ITS ---
Date of service: 06/18/23 Time of Service: 08:21 Discharge Plan Disposition Patient Disposition: Home Condition: Good Discharge Details Reason For Visit: colon scope Attending Provider: Peg Lewis Primary Care Provider: Ronn Ross Home Meds and New Rx's Prescriptions: Continued pantoprazole 40 mg tablet,delayed release (DR/EC) See Rx Instructions .ROUTE .COMPLEX Qty: 90 3RF Dose Instruction: TAKE ONE TABLET BY MOUTH EVERY DAY Rx Instructions: TAKE ONE TABLET BY MOUTH EVERY DAY aspirin [Aspir-81] 81 MG tablet,delayed release (DR/EC) 81 mg PO DAILY Qty: 30 0RF Hold Instructions: Resume on 03/06/23. Patient Comments: pt stopped med Discontinued bisacodyl [Dulcolax (bisacodyl)] 5 mg tablet,delayed release (DR/EC) 5 mg PO ONCE Qty: 4 0RF Rx Instructions: Take per colonoscopy instructions provided by ordering providers office polyethylene glycol 3350 17 gram/dose powder 17 g PO ONCE Qty: 238 0RF Rx Instructions: Take per colonoscopy instructions provided by ordering providers office Discharge Instructions Additional Instructions: DSU Colonoscopy Post- Op Instructions Instructions for Everyone who is given Anesthesia: For your safety, please do the following for the next twenty-four (24) hours: *Do Not operate a motor vehicle (car, truck, motorcycle, etc.) *Do Not drink alcoholic beverages or use any recreational drugs for the first 24 hours or while taking pain medications. The medications in your body may have a reaction that can be dangerous. *Do Not make any important decisions or sign any important papers. Findings: No polyps today Minor diverticula-make sure you are moving your bowels on a regular basis and not straining to go to the bathroom. If you find you are having issues with constipation or straining, then you might want to consider starting a fiber supplement such as Metamucil Follow up: Repeat flex-sig in 6months. Cool 1. No lifting over 20 pounds or strenuous activity for the first 24 hours after your procedure. After 24 hours there are no restrictions on your activity but you may feel fatigued for a few days. 2. After you arrive home you may have a light meal and return to your normal diet as you can tolerate it without feeling sick to your stomach. 3. You may have a bloated, gaseous feeling in your belly (abdomen) after a colonoscopy. Passing gas and belching will help. Walking or lying down on your left side with your knees flexed may relieve the discomfort. Call the office at [phone] (Office) or [phone] (Hospital) right away if you notice any of the following: a.Vomiting of blood or ?coffee ground stools?. b.Rectal bleeding 1Tbsp, blood clots or continuous bleeding. c.Severe belly (abdominal) pain. d.A hard distended belly (abdomen) and an inability to pass gas. 4. Please don?t expect to have a normal BM (bowel movement) for 2-3 days after your procedure. 5. If there are questions regarding the findings of your procedure, please contact your doctor 6. If you are unable to contact your doctor with a problem, contact the hospital at [phone]. 7. Continue all your regular medications unless directed otherwise. I understand the above instructions and have no questions. Signature of Patient or Adult Escort Name of Responsible Adult Escort Signature of Nurse Date/Time Activity:: see above Diet:: see above Discharge Orders Discharge Orders: Discharge Order (Routine); Ordered 06/18/23 Ordered By: Peg Lewis DS: Diagnosis Discharge Diagnosis (1) Villous adenoma of rectum: Status: Acute Asessment and Plan: The patient is seen and examined after their colonoscopy.? The patient has been able to pass gas.? They are not having abdominal pain.? They have been able to tolerate liquids and a snack.? They do not have any nausea or vomiting.? They are not having any chest pain or shortness of breath.??? They are not having any rectal bleeding. Their vital signs have been stable-see nursing notes. We discussed findings during their colonoscopy, and any biopsies that were done/polyps that were removed. The patient will be sent a letter with any biopsy results, and when to repeat the colonoscopy.-see discharge instructions. Patient was given explicit instructions to follow-up regarding colonoscopy-refer to discharge instructions.? We reviewed resumption of medications. Patient verbalized understanding and discharged in stable and satisfactory condition- See nursing notes. (2) Diverticula of colon: Status: Acute (3) Coronary arteriosclerosis: Status: Chronic (4) Hyperlipidemia: Status: Chronic (5) Tobacco use disorder: Status: Acute (6) Gastroesophageal reflux disease without esophagitis: Status: Acute (7) Essential hypertension: Status: Acute (8) Lung nodule seen on imaging study: Status: Acute
[2023-06-18 06:26] VITALS: BP 116/75; PULSE 76; RESP 16; TEMP 36.7; O2SAT 76
[2023-06-18] MEDS: Lactated Ringers 1,000 ML 80 ML IV (06:54)
--- NOTE | 2023-06-18 06:55 | ANES.PREOP_ITS ---
General Info Date of Service Date Performed: 06/18/23 Height: 5 ft 5 in Weight: 82.3 kg Body Mass Index (BMI): 30.2 Surgical Procedure: Operation Date: 06/18/23 07:35 Proposed Procedure Side Surgeon ankit Lewis, DO Meds Allergies and Home Medications Allergies Allergy/AdvReac Type Severity Reaction Status Date / Time No Known Allergies Allergy Verified 06/18/23 06:30 Home Medication Medication Instructions Recorded aspirin 81 mg tablet,delayed 81 mg PO DAILY ##30 01/04/13 release (Aspir-) pantoprazole 40 mg tablet,delayed See Rx Instructions .Route 08/08/22 release .COMPLEX #90 tabs Current Visit Medications: Current Medications Generic Name Dose Route Start Last Admin Trade Name Freq PRN Reason Stop Dose Admin Hyoscyamine Sulfate 0.125 mg 06/18/23 00:46 Hyoscyamine 0.125 Mg Sl/Oral/Chew SL 07/18/23 00:45 DIRECTED PRN Ringer's Solution 1,000 mls @ 80 mls/hr 06/18/23 06:00 IV 07/17/23 23:59 [facility] IV Miscellaneous Supplies 1 each 06/18/23 06:00 Iv Access IV 07/17/23 23:59 DIRECTED MARIO Ondansetron HCl 4 mg 06/18/23 00:46 Ondansetron 4 Mg/2 Ml Vial IVP 07/18/23 00:45 Q4H PRN PRN Nausea / Vomiting Sodium Chloride 0 ml 06/18/23 06:00 Normal Saline Flush 10 Ml Syr IV 07/17/23 23:59 PRN PRN Sodium Chloride 0 ml 06/18/23 06:00 Normal Saline 10 Ml Vial IJ 07/17/23 23:59 DIRECTED PRN Sterile Water 0 ml 06/18/23 06:00 Water,Injection,Sterile 10 Ml Vial IJ 07/17/23 23:59 DIRECTED PRN PFSH Active Problems Active Problems: Problem Status Onset Code Villous adenoma of rectum D37.5 Diverticula of colon K57.30 Lung nodule seen on imaging study R91.1 Essential hypertension 07/11/15 I10 Gastroesophageal reflux disease without esophagitis 07/11/15 K21.9 Tobacco use disorder F17.200 Hyperlipidemia E78.5 Coronary arteriosclerosis I25.10 Medical History Medical History Plantar fasciitis, right History of surgery S/P Lap assisted vaginal hysterectomy including oophorectomy. S/P section x two. S/P cardiac catheterization. 2006 Menopausal symptom Following oophorectomy. Surgical History Surgical History History of cardiac catheterization 2006 History of colonoscopy (~02/2023) Hx of hysterectomy Tobacco Smoking/Tobacco Use Status: Former Tobacco Use Alcohol Alcohol Intake: current Alcohol intake frequency: a few times a month Substance Use Substance use: Never Substance use type: does not use Vital Signs and Lab Results Vital Signs Most Recent Vital Signs in EMR: Most Recent Vital Signs Temp Pulse Resp BP Pulse Ox 36.7 C 76 16 116/75 76 L 06/18/23 06:26 06/18/23 06:26 06/18/23 06:26 06/18/23 06:26 06/18/23 06:26 Lab Results Blood Type / Crossmatch: No Data to Display Complete Blood Count: No Data to Display Complete Metabolic Panel: No Data to Display Liver Function Panel: No Data to Display Coagulation Panel: No Data to Display Cardiac Panel: No Data to Display Arterial Blood Gas: No Data to Display Venous Blood Gas: No Data to Display Pancreas Panel: No Data to Display Thyroid Panel: No Data to Display Infectious Disease: No Data to Display Blood Cultures: No Data to Display Toxicology Panel: No Data to Display Imaging and Studies Imaging and Studies Study information below may be from another EMR and interpreted by another provider. Please see original notes in EMR for more complete details. EKG Summary: 10/04: sinus. Stress Test Summary: 07/28: normal study, LVEF 51%. Anesthesia Assessment and Plan Anesthesia History Personal History: No History of Anesthesia Complications Family History: No Family History of Anesthesia Complications Exercise Tolerance Exercise Tolerance: Metabolic Equivalents>4 Pertinent Negatives Pertinent Negatives: No Symptoms of GERD, No Major Cardiovascular Symptoms or Complaints, No Major Pulmonary Symptoms or Complaints and No History of CVA/TIA Cardiac & Pulmonary Exam Cardiac Exam: Normal S1/S2 Heart Sounds Pulmonary Exam: Clear Bilateral Breath Sounds Implantable Cardiac Device Does patient have a Pacemaker or an ICD?: No Airway Exam Known Difficult Airway: No Mallampati Class: 3 Mouth Opening: Normal (> 3cm) Thyromental Distance: Greater than 3 cm Neck Range of Motion: Full ROM Neck Circumference: Normal Teeth Condition: Normal Dentition ASA Classification ASA Score: ASA 2 Emergency Case?: No NPO Status NPO Status: NPO Clears >2 hours, Solids >8 hours Anesthesia Plan Resuscitation Status: Full Code Anesthesia Technique: General Anesthesia Airway Planned: Natural Airway Monitors Used: Standard Monitors Preoperative Comments:: Sig PMHx: NSTEMI 2005 (clean cath 2008, negative stress 2011), GERD (pantoprazole), HTN, lung nodule. former smoker, occ EtOH.
[2023-06-18 07:02] VITALS: BMI 30.2
[2023-06-18 08:13] VITALS: BP 85/72; PULSE 86; RESP 18; TEMP 36.7; O2SAT 98
[2023-06-18 08:40] VITALS: BP 111/57; PULSE 70; RESP 18; TEMP 36.4; O2SAT 96
[2023-06-18] MEDS: Hyoscyamine 0.125 MG SL/ORAL/CHEW SL (08:45)
--- NOTE | 2023-06-18 09:07 | W.ANESPOSTOP ---
Postoperative Evaluation Date, Time and Location Date Performed: 06/18/23 Time Performed: 09:07 Patient Location: Day Surgery Unit Vital Signs Most Recent Imported Vital Signs: Most Recent Vital Signs Temp Pulse Resp BP Pulse Ox 36.4 C L 70 18 111/57 L 96 06/18/23 08:40 06/18/23 08:40 06/18/23 08:40 06/18/23 08:40 06/18/23 08:40 Pain Score Most Recent Pain Score: Most Recent Pain Score Pain Level 6 06/18/23 08:40 Assessment Mental Status: Awake (Alert & Oriented to Patient Baseline) Airway and Respiratory Function: Patent airway with normal (patient baseline) respiratory exam Cardiovascular Function: Hemodynamically Stable Hydration Status: Adequately Hydrated Nausea & Vomiting: No Nausea or Vomiting Pain: Pt. Denies Any Pain Peripheral Nerve Block: Patient did not receive a nerve block
== END 2023-06-18 09:33 | disposition home or self-care (01) ==
LOC: SUR 06:02
PROVIDERS: PCP Nurse Practitioner Family; Visit Provider Surgery
PROC: 0DJD8ZZ Inspection of Lower Intestinal Tract, Via Natural or Artificial Opening Endoscopic (ICD-10-PCS; CPT 45378; principal; 2023-06-18 07:30)
DX: Z12.11 Encounter for screening for malignant neoplasm of colon (principal); Z86.010 Personal history of colon polyps; I10 Essential (primary) hypertension; K21.9 Gastro-esophageal reflux disease without esophagitis; F17.200 Nicotine dependence, unspecified, uncomplicated
CPT/HCPCS: 45378; J2001; J3490

== ENCOUNTER 2025-06-21 17:05 | Emergency (ER) | payer SELFPAY ==
--- NOTE | 2025-06-21 17:00 | RT.EKG_ITS ---
APPROVED REPORT Exam: Resting ECG Reason for Exam: Chest Pain Patient Location: E HR:77 bpm ECG Measurements Heart Rate 77 AXIS MD 119 P 30 QRSd 90 QRS 45 QT 397 T 54 QTc 448 Conclusion Sinus rhythm, rate 77 No interval abnormalities Inverted T waves V1-V4, unchanged from priors No STEMI
[2025-06-21 17:08] VITALS: BP 154/73; PULSE 70; RESP 18; TEMP 36.6; O2SAT 98
--- NOTE | 2025-06-21 17:30 | DI.RAD_ITS ---
Exam(s) XR CHEST 2V PA LATERAL EXAM: XR CHEST 2V PA LATERAL CLINICAL HISTORY: Chest pain TECHNIQUE: 2D digital imaging was performed. Two views. COMPARISON: CT CT CHEST PE CTA from 09/24/2022 FINDINGS: HEART: Normal size. Aorta: Not dilated. PULMONARY VASCULATURE: Normal. MEDIASTINUM: Unremarkable. LUNGS: Clear. PLEURAL SPACE: No pleural effusion or pneumothorax. BONE:Unremarkable for age. SOFT TISSUES: Unremarkable. IMPRESSION: No acute abnormality. DATA REPOSITORY: RADIATION DOSE DELIVERED:
--- NOTE | 2025-06-21 17:32 | ED.GENADUL_ITS ---
Discharge Plan Disposition Patient Disposition: Home Condition: Stable Discharge Details Clinical Impression: Bronchitis Primary Care Provider: Ronn Ross ED Provider: Talya Davis Home Meds and New Rx's Prescriptions: No Action pantoprazole 40 mg tablet,delayed release (DR/EC) See Rx Instructions .ROUTE .COMPLEX Qty: 90 3RF Dose Instruction: TAKE ONE TABLET BY MOUTH EVERY DAY Rx Instructions: TAKE ONE TABLET BY MOUTH EVERY DAY aspirin [Aspir-81] 81 MG tablet,delayed release (DR/EC) 81 mg PO DAILY Qty: 30 0RF Patient Comments: pt stopped med Discharge Instructions Instructions: Bronchitis, Adult ED Additional Instructions: You were seen in the emergency department today for evaluation of chest pain and shortness of breath. In our department had a full physical examination performed, and had reassuring laboratory studies, including negative cardiac enzymes. You are D-dimer was very slightly elevated, this is a level that screens for blood clots, you had a CT scan of your chest that did not show any sign of blood clots today. You do have some inflammation around your airways consistent with early bronchitis. Given the brief duration of symptoms, and your recent exposure to a person sick with a viral illness, I am most concerned for a virus today. Typically, we do not utilize antibiotics in this situation as they are unlikely to help. We did discuss testing for COVID and influenza and at this time you have declined. Please use therapeutic dosing of Tylenol (acetaminophen) & Advil (ibuprofen) in an alternating fashion as follows: Take 1000mg of Tylenol every 6 hours without missing doses- that is 4 times per day. [place] in between the Tylenol doses, take 600mg of Advil also on a 6 hour schedule, that is also 4 times per day. With this strategy, you will be taking something for fever/pain as often as every 3 hours. The daily maximum dosing of Tylenol is 4000mg, and the daily maximum dosing of Advil is 2400mg. Please note that some common cold medications & prescription pain medications may contain acetaminophen and you need to read OTC drug labels and factor that in to maximum daily doses. Please maintain good hydration and nutrition, and please follow-up with your primary care provider in the next few days to discuss this visit and any symptoms that change, worsen, or persist. Thank you for allowing us to be part of your care. Stand Alone Forms: Portal Information HPI General Mode of arrival: ambulatory . Date/Time Provider Initiated Documentation: 06/21/25 17:09 . Limitations to Documentation: no limitations . Information obtained by: patient, family and old records reviewed . HPI Narrative: This is a 60-year-old female patient with a history of hypertension, hyperlipidemia, NSTEMI, presenting for evaluation of chest pain and shortness of breath. The patient reports that she woke up this morning with pressure in the center of her chest, that radiates to her left shoulder and arm. She notices reproduction of her pain and difficulty taking a deep breath, went to work and had symptoms that persisted throughout the day. She states that she has not tried any medications for management of her symptoms, does not currently take a baby aspirin or any cholesterol medications. She states that she has not noted any reproduction of the chest pain with movement or position. No cough, fevers or chills, abdominal tenderness, but she does note some nausea. Denies leg swelling or calf tenderness, no recent trauma or injuries. Related Data Home Medications Medication Instructions Recorded Confirmed aspirin 81 mg tablet,delayed 81 mg PO DAILY ##30 01/0406/21/25 release (Aspir-) pantoprazole 40 mg tablet,delayed See Rx Instructions .Route 08/08/22 06/21/25 release .COMPLEX #90 tabs Previous Rx's Medication Instructions Recorded aspirin 81 mg tablet,delayed 81 mg PO DAILY ##30 01/04 release (Aspir-) pantoprazole 40 mg tablet,delayed See Rx Instructions .Route 08/08/22 release .COMPLEX #90 tabs Allergies Allergy/AdvReac Type Severity Reaction Status Date / Time No Known Allergies Allergy Verified 06/18/23 06:30 General Stated Complaint: Chest Pain JUNO: 3 Exam Narrative Exam Narrative: Gen: Awake and alert, in no apparent distress HEENT: Non-icteric sclera Neck: Supple Lungs: No apparent respiratory distress, normal respiratory effort. Lung sounds clear and equal bilaterally without wheezing, rhonchi, rales CV: Appears well perfused, heart with regular rate and rhythm, strong distal pulses, no murmurs auscultated Abdomen: Non-distended, soft, nontender to palpation without rigidity, rebound, guarding MSK: Moves 4 extremities without apparent limitation in ROM. No unilateral calf swelling or tenderness, no peripheral edema Skin: Visualized skin without rashes, cyanosis. Neuro: Normal Gait, no obvious focal deficits or facial asymmetry. Speaks in full, clear sentences. Psych: Appropriate for situation. Course Vital Signs Vital signs: Vital Signs Temperature 36.6 C 06/21/25 17:08 Pulse 70 06/21/25 17:08 Respiratory Rate 18 06/21/25 17:08 Blood Pressure 154/73 H 06/21/25 17:08 Pulse Oximetry 98 06/21/25 17:08 Temperature 36.6 C 06/21/25 17:08 Temperature Source Oral 06/21/25 17:08 Pulse 70 06/21/25 17:08 Respiratory Rate 18 06/21/25 17:08 Blood Pressure 154/73 H 06/21/25 17:08 Blood Pressure Position Sitting 06/21/25 17:08 Pulse Oximetry 98 06/21/25 17:08 Oxygen Delivery Method Room Air 06/21/25 17:08 Oxygen Flow Rate 0 06/21/25 17:08 Medical Decision Making This is a 60-year-old female patient presenting for evaluation of chest pain and difficulty taking a deep breath. My differential includes but is not limited to ACS including STEMI, NSTEMI, unstable angina, certainly considered arrhythmia, pericarditis/myocarditis, aortic pathology. Considered pulmonary abnormalities including pneumonia, bronchitis, pleural effusion, pulmonary edema, reactive airway disease, pneumothorax. The patient is without tachycardia, hypoxia, but her respiratory symptoms do increase my concern for pulmonary embolism, and she does not meet PERC criteria for rule out given her age. No significant GI symptoms or vomiting to suggest Boerhaave's, esophagitis, peptic ulcer disease, pancreatitis. Considered musculoskeletal pathologies including costochondritis, chest wall pain. EKG obtained, which shows a sinus rhythm without evidence of ischemia, interval abnormality, or ectopy. She has inverted T waves in the precordial leads which have been demonstrated on prior EKGs. I will provide the patient with a full dose of aspirin, Zofran for nausea, and obtain labs to include CBC, CMP, magnesium, troponin, BNP, D-dimer, and will obtain an x-ray of the chest. - I independently interpreted the laboratory studies, which show no significant leukocytosis, anemia, or thrombocytopenia. The chemistry panel is without evidence of electrolyte abnormality, kidney dysfunction, or new liver injury. She has a transaminitis which is at baseline [facility]. Troponin is negative and without interval increase on 1 hour delta recheck. D-dimer is very modestly elevated to 513, given the patient's ongoing respiratory symptoms it is reasonable for us to proceed with CT pulmonary embolism study. Her x-ray was unremarkable. -CT was obtained and reviewed by myself, shows no evidence of pulmonary embolism or pneumonia, but does show some changes consistent with bronchitis. Given the very brief duration of symptoms, I have a low concern that this represents bacterial bronchitis, the patient has no history of reactive airway disease or pulmonary history. She does have a recent history of exposure to friends sick with viral illnesses. I offered the patient COVID and flu testing as she has not been vaccinated this year and at this time she declines. I counseled her on conservative management, and at this time, the patient has had a full medical evaluation and is safe for discharge to home. They are hemodynamically stable, ambulatory, and tolerating PO. They are understanding of the follow-up plan and return precautions. They left our facility without incident. Talya Davis MD [facility] All Active Problems (Updated 06/21/25 @ 20:21 by Talya Davis MD) Bronchitis (Acute) Villous adenoma of rectum (Acute) high grade dysplasia. Repeat CE in 07/04 Diverticula of colon (Acute) Lung nodule seen on imaging study (Acute) 03/02- Main ER- [facility], CT recommended/ ordered Essential hypertension (Acute 07/11/15) Gastroesophageal reflux disease without esophagitis (Acute 07/11/15) Tobacco use disorder (Acute) Hyperlipidemia (Chronic) Relative hyperlipidemia, we set LDL target of 70. Last LDL 100 off therapy. Coronary arteriosclerosis (Chronic) 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 Clean coronaries 2008. Negative MPI July 2012. Medical History (Updated 06/21/25 @ 20:21 by Talya Davis MD) Plantar fasciitis, right History of surgery S/P Lap assisted vaginal hysterectomy including oophorectomy. S/P section x two. S/P cardiac catheterization. 2006 Menopausal symptom Following oophorectomy. Surgical History (Updated 06/19/23 @ 08:01 by Aylin De La Cruz) History of cardiac catheterization 2006 History of colonoscopy (~06/2023) 8 years Hx of hysterectomy Family History Mother Stroke Father , CAR ACCIDENT No problems noted. Sister , SHOT BY BOYFRIEND No problems noted. Sister Neoplasm Sister Neoplasm Social History Smoking/Tobacco Use Status: Former Tobacco Use Quit Date: 04/12/22 Smoking risk assessment performed?: Yes Alcohol Intake: current Alcohol Intake frequency: a few times a month Drug use: Never Substance use type: does not use Housing: apartment Do you feel safe at home: Yes Do you feel safe in your relationship?: Yes Additional Social history: live with grandabe [place] Have you Been Recently Intoxicated or Drunk Within the Last 30 days?: No Have you Ever Experienced Previous Episodes of Alcohol Withdrawal?: No Have you ever Experienced Withdrawal Seizures?: No Have you ever Experienced Delirium Tremens(DT)s?: No Have you ever undergone Alcohol Rehabilitation Treatment (i.e, inpt ot outpatient treatment programs)?: No Have you ever Experienced Blackouts?: No Have you ever Combined Alcohol with other Downers within the last 90 days?: No Have you ever Combined Alcohol with any other Substance of Abuse during the last 90 days?: No Positive Blood Alcohol level on Presentation? [PCS.BAL]: No Evidence of Increased Autonomic Activity (i.e. HR>120, tremor, sweating, agitation, nausea)?: No Result: 0
[2025-06-21] MEDS: Ondansetron 4 MG/2 ML VIAL IVP (17:45)
[2025-06-21] MEDS: Aspirin 81 MG CHEW 324 MG CH (17:45)
[2025-06-21 17:50] LABS: Abs Immature Grans 0.02 10^3/uL (0.0-0.06); HCT 38.1 % (36.0-46.0); HGB 13.1 g/dL (11.2-15.7); Immature Grans % 0.3 %; MCH 33.2 pg (27.0-33.0); MCHC 34.4 % (32.0-36.0); MCV 97 fL (80-95); MPV 10.5 fL (8.0-11.0); Platelet Count 215 10^3/uL (130-400); RBC 3.95 10^6/uL (3.93-5.22); RDW 12.0 % (11.7-14.6); RDW-SD 43.1 fL; WBC 7.21 10^3/uL (4.4-10.8)
--- NOTE | 2025-06-21 18:15 | DI.CT_ITS ---
Exam(s) CT CHEST PE CTA EXAM: CT CHEST PE CTA CLINICAL HISTORY: elevated dimer, SOB and CP. TECHNIQUE: Imaging Protocol: CT angiography of the chest was performed using pulmonary embolus protocol. Multi planar reconstructions were performed. CONTRAST MATERIAL: Intravenous: Omnipaque 350 Contrast volume: 75 cc COMPARISON: CT CT CHEST PE CTA from 09/24/2022 FINDINGS: CHEST: PULMONARY ARTERIES: There are no intraluminal filling defects to suggest acute pulmonary emboli. LUNGS: There are no infiltrates nor evidence of pulmonary infarction.. There are no pleural effusions. No concerning pulmonary nodules. MEDIASTINUM: There is no hilar nor mediastinal adenopathy. Visualized thyroid unremarkable. CARDIAC: Heart size is upper normal. There is no pericardial effusion.Caliber of the thoracic aorta is within normal limits. There is no significant shift of the interventricular septum. PARTIALLY VISUALIZED UPPERMOST ABDOMEN: There is significant a [place] steatosis. Spleen size is normal. There is no ascites. No adrenal masses. OSSEOUS: No significant osseous lesions.No fractures.. IMPRESSION: 1. No evidence of acute pulmonary emboli. No evidence of pulmonary infarction.No infiltrates nor pleural effusions and no intrathoracic adenopathy. 2. Advanced hepatic steatosis noted. Preliminary V rad report was reviewed RADIATION DOSE DELIVERED: 76.71mGy.cm Total DLP DATA REPOSITORY: All CT scans at this facility are submitted to the National Radiology Data Registry (NRDR) Dose Index Registry (DIR) with the [employer] ([employer]). RADIATION OPTIMIZATION: All CT scans at this facility use at least one of these dose optimization techniques: automated exposure control; mA and/or kV adjustment per patient size (includes targeted exams where dose is matched to clinical indication); or iterative reconstruction.
[2025-06-21 18:16] LABS: D-Dimer 513 ng/mlFEU (<500)
[2025-06-21 18:17] LABS: ALT 83 U/L (14-59); AST 55 U/L (15-37); Albumin 3.5 g/dL (3.4-5.0); Alkaline Phosphatase 89 U/L (46-116); Anion Gap 7.7 mmol/L (3-11); BUN 14 mg/dL (7-18); Bilirubin, Total 0.7 mg/dL (0.2-1.0); CO2 29.3 mmol/L (21.0-32.0); Calcium 8.5 mg/dL (8.5-10.1); Chloride 103 mmol/L (98-107); Glucose 110 mg/dL (74-106); Lipase 54 U/L (<78); Magnesium 1.7 mg/dL (1.8-2.4); Potassium 4.2 mmol/L (3.5-5.1); Sodium 140 mmol/L (136-145); Total Protein 7.5 g/dL (6.4-8.2); Troponin I 4 ng/L (<or=51)
[2025-06-21 18:32] VITALS: RESP 20
[2025-06-21 18:55] LABS: Troponin I 5 ng/L (<or=51)
[2025-06-21] MEDS: Omnipaque 350 MG/ML 100 ML BTL IJ (19:03)
[2025-06-21] MEDS: Normal Saline - Diluent 50 ML VIAL IJ (19:17)
[2025-06-21] MEDS: Normal Saline Flush 10 ML SYR IVP (19:18)
--- NOTE | 2025-06-21 20:11 | DI.VRAD_ITS ---
PROCEDURE INFORMATION: Exam: CTA Chest With Contrast Exam date and time: 06/21/2025 7:07 PM Age: 60 years old Clinical indication: Abnormal findings; Abnormal diagnostic tests; Elevated d-dimer; Shortness of breath and other: Cp; Cp, SOB, elevated d dimer TECHNIQUE: Imaging protocol: Computed tomographic angiography of the chest with contrast. Exam focused on the arteries. 3D rendering (Not supervised by radiologist): MIP and/or 3D reconstructed images were created x the technologist. Radiation optimization: All CT scans at this facility use at least one of these dose optimization techniques: automated exposure control; mA and/or kV adjustment per patient size (includes targeted exams where dose is matched to clinical indication); or iterative reconstruction. Contrast material: OMNIPAQUE 350; Contrast volume: 75 ml; Contrast route: INTRAVENOUS (IV); COMPARISON: CT CHEST PE CTA 09/24/2022 8:57 AM FINDINGS: Pulmonary arteries: The pulmonary arteries enhance appropriately with no evidence of pulmonary embolism. Aorta: Aortic assessment mildly limited by early contrast phase. No gross aneurysm or dissection. Mild calcific atherosclerosis. No mediastinal hematoma. Thyroid: The visualized thyroid gland demonstrates no gross abnormality. Lungs: Mild bilateral bronchial wall thickening consistent with bronchitis or bronchial edema. No bronchiectasis. No gross pulmonary infiltrates or edema pattern. Mild atelectasis in the lung bases. No pulmonary mass lesions are identified. Pleural spaces: No pleural effusion. No pneumothorax. Heart: Heart size normal. No pericardial effusion. Coronary arteries: No coronary artery calcification. Esophagus: The esophagus is largely contracted but demonstrates no gross abnormality. Lymph nodes: No supraclavicular or axillary adenopathy. No mediastinal or hilar adenopathy. Liver: Moderate generalized hepatic steatosis. Bones/joints: No acute osseous abnormalities. Chronic lower left lateral rib fracture. Mild thoracic spondylosis. Soft tissues: No acute soft tissue abnormalities. IMPRESSION: 1. No evidence of pulmonary embolism or aortic dissection. 2. Mild bilateral bronchial wall thickening suggesting bronchitis or bronchial edema. No gross pulmonary infiltrates. 3. Moderate hepatic steatosis. 4. Additional nonemergent findings detailed above. Dictated and Authenticated by: Zbigniew Anaya MD. Orderin St. Reji Babin MD
[2025-06-21 20:26] VITALS: BP 132/61; PULSE 63; RESP 14; TEMP 36.1; O2SAT 94
== END 2025-06-21 20:32 | disposition home or self-care (01) ==
PROVIDERS: Emergency Provider Emergency Medicine; PCP Nurse Practitioner Family
DX: J40 Bronchitis, not specified as acute or chronic (principal); R07.9 Chest pain, unspecified
CPT/HCPCS: 99284; 99285; 96374; 36415; 71275; 80053; 83690; 93005; 71046; 83735; 83880; 84484; 85025; 85379; 93010; J2405; J3490